=== PATIENT | male | born 1945 | race Caucasian/White ===

== ENCOUNTER 2018-10-13 05:40 | Observation (INO) ==
--- NOTE | 2018-09-24 10:15 | PAT Medication Instructions ---
Medication Instructions Date of Service September 24, 2018 Home Medications arginine HCl (L-arginine) 1,000 mg tablet 1 tab PO BID aspirin 81 mg tablet,delayed release 81 mg PO QAM atorvastatin 10 mg tablet 10 mg PO QAM cyanocobalamin (vit B-12) 500 mcg tablet 500 mcg PO QAM levomefolate Ca 3 mg-B6 35 mg-meB12 2 mg-algal oil 90.314 mg capsule 1 cap PO BID tadalafil 5 mg tablet 5 mg PO HS zaleplon 10 mg capsule 10 mg PO HS PRN cholecalciferol (vitamin D3) 1,000 units PO QPM melatonin 10 mg PO HS PRN ASK your prescriber and surgeon aspirin 81 mg tablet,delayed release 81 mg PO QAM STOP taking 2 weeks before surgery (or as soon as possible if surgery is within 2 weeks) arginine HCl (L-arginine) 1,000 mg tablet 1 tab PO BID levomefolate Ca 3 mg-B6 35 mg-meB12 2 mg-algal oil 90.314 mg capsule 1 cap PO BID DO NOT take the morning of surgery cyanocobalamin (vit B-12) 500 mcg tablet 500 mcg PO QAM Take morning of surgery With a small sip of water, OTHERWISE NOTHING TO EAT OR DRINK AFTER MIDNIGHT: atorvastatin 10 mg tablet 10 mg PO QAM Take evening before surgery tadalafil 5 mg tablet 5 mg PO HS zaleplon 10 mg capsule 10 mg PO HS PRN (if needed) cholecalciferol (vitamin D3) 1,000 units PO QPM melatonin 10 mg PO HS PRN (if needed) Other Notes If you have any questions please call us at [phone] or [phone] or [phone] or [phone]
--- NOTE | 2018-09-25 09:33 | Anesthesiology Consultation ---
Date of Service September 25, 2018 Assessment & Plan (1) Encounter for pre-operative examination: Patient prefers to be called "Justo" Chart Review Chart Review: Acceptable Risk for Surgery and Patient seen in Pre Admission Testing Teaching & Discussion Pre-Anesthesia Teaching/Discussion Notes: Instructed NPO after midnight before surgery,except medications with 15 cc of water. Medication instructions provided according to the PAT guidelines. History Surgery Operation Date: 10/13/18 07:00 Proposed Procedures p Bilateral Open Inguinal Hernia Repair - Bry Mccurdy MD, FACS Height/Weight Height: 6 ft 4 in Weight: 93.3 kg Allergies Allergy/AdvReac Type Severity Reaction Status Date / Time No Known Allergies Allergy Verified 09/22/18 10:09 Medications Home Medications Medication Instructions Recorded Confirmed Last Taken arginine HCl (L-arginine) 1,000 mg 1 tab PO BID tab 09/08/18 09/22/18 Unknown tablet aspirin 81 mg tablet,delayed 81 mg PO QAM tab 09/08/18 09/22/18 Unknown release atorvastatin 10 mg tablet 10 mg PO QAM tab 09/08/18 09/22/18 Unknown cyanocobalamin (vit B-12) 500 mcg 500 mcg PO QAM tab 09/08/18 09/22/18 Unknown tablet levomefolate Ca 3 mg-B6 35 1 cap PO BID cap 09/08/18 09/22/18 Unknown mg-meB12 2 mg-algal oil 90.314 mg capsule tadalafil 5 mg tablet 5 mg PO HS tab 09/08/18 09/22/18 Unknown zaleplon 10 mg capsule 10 mg PO HS PRN cap 09/08/18 09/22/18 Unknown cholecalciferol (vitamin D3) 1,000 units PO QPM 09/22/18 09/22/18 Unknown melatonin 10 mg PO HS PRN 09/22/18 09/22/18 Unknown Past Medical History Medical History BPH (benign prostatic hyperplasia) Hyperlipidemia Neuropathy FEET (BOTTOM)/TOE NEUROPATHY Osteoarthritis PVC (premature ventricular contraction) NO ISSUES S/P ABLATION Exercise / Class Metabolic Activity II 4-5 Yardwork/Stairs/Walk up hill Past Family History Family History Father Hx of cardiac disorder Mother Heart disease Past Surgical History Surgical History History of cardiac radiofrequency ablation History of total left knee replacement History of transurethral resection of prostate History of urologic surgery UROLIFT Hx of appendectomy Hx of craniotomy ANEURYSM REPAIR D/T "INTACT ANUERYSM" (1998) Hx of melanoma excision BACK Past Anesthesia History No Hx of Anesthesia Complications and No Family Hx of Anesthesia Complications History of PONV No Hx of PONV and No Hx of Motion Sickness Social History Smoking Status: Former smoker Do You Dip or Chew Tobacco: No Smoking End Date: QUIT 1983 Hx Alcohol Use: Yes Alcohol type: wine alcohol intake frequency: a few times a week Hx Substance Use: No substance use type: marijuana Review of Systems Rare palpitations. Patient denies chest pain, shortness of breath, dyspnea on exertion, joint pain, reflux, cough, wheezing. Physical Exam Vital Signs VITALS BP 128/85 P 75 TEMP 97.8 SP02 94%RA RESP 16 PHYSICAL Full neck and c-spine range of motion. Full TMJ range of motion. TMD 3 finger breaths Mallampati Score 1 Dentition: intact Lungs: clear throughout to auscultation Cardiac: regular rate and rhythm, no murmurs noted Spine: normal Carotid arteries: negative bruit Extremities: no edema Testing Laboratory Results 08/14/18 WBC 5.16 H/H 15.5/43.0 PLATELETS 181 SODIUM 140 POTASSIUM 3.9 CHLORIDE 108 CO2 28 BUN 18 CREATININE 1.05 GLUCOSE 83 Electrocardiogram Date: 09/25/18 Findings: + NSR @ (77)
[2018-10-13] MEDS ORDERED: CEFAZOLIN 2000MG 2,000 MG/15 ML SYR IV SCH (06:00)
[2018-10-13] MEDS ORDERED: LR 15ML/HR IV SCH (06:00)
[2018-10-13] MEDS ORDERED: HYDROmorphone INJ 1 MG/ML SYRINGE IV PRN (06:39)
[2018-10-13] MEDS ORDERED: ONDANSETRON INJ 2 MG/ML 2 ML VIAL IV PRN ×2 (06:39→10:19)
[2018-10-13] MEDS ORDERED: ATROPINE SULFATE 0.1 MG/ML 10ML SYR IV PRN (06:39)
[2018-10-13] MEDS ORDERED: NALOXONE HCL 0.4 MG/1 ML VIAL/CARP IV PRN (06:39)
[2018-10-13] MEDS ORDERED: FLUMAZENIL 0.1 MG/1 ML 10 ML VIAL IV PRN (06:39)
[2018-10-13] MEDS ORDERED: LABETALOL HCL IV 5 MG/ML 20ML IV PRN (06:39)
[2018-10-13] MEDS ORDERED: PROMETHAZINE HCL 12.5 MG in SODIUM CHLORIDE 0.9% 50 ML IV PRN ×2 (06:39→10:19)
[2018-10-13] MEDS ORDERED: ePHEDrine sulfate 50 MG/ML AMP IV PRN (06:39)
[2018-10-13] MEDS ORDERED: PROPOFOL IV EMULSION 10 MG/ML 20 ML VIAL IV ONE (06:44)
[2018-10-13] MEDS ORDERED: DEXAMETHASONE SOD INJ 4 MG/ML VIAL ONE (06:44)
[2018-10-13] MEDS ORDERED: ONDANSETRON INJ 2 MG/ML 2 ML VIAL ONE (06:44)
[2018-10-13] MEDS ORDERED: LIDOCAINE HCL 2% 2 ML VIAL/AMP(20MG/ML) INFIL ONE (06:44)
[2018-10-13] MEDS ORDERED: fentaNYL citrate 100 MCG/2 ML VIAL ONE ×2 (06:44→07:30)
[2018-10-13] MEDS ORDERED: LARYING-O-JET KIT (LTA) ONE (06:44)
[2018-10-13] MEDS ORDERED: BUPIVACAINE 0.5 % 5 MG/1 ML MPF 30ML VIAL ONE ×2 (06:46→08:00)
[2018-10-13] MEDS ORDERED: LIDOCAINE HCL 1% 20 ML VIAL ONE (06:46)
[2018-10-13] MEDS ORDERED: CEFAZOLIN 250 MG/ML 1 GM VIAL ONE (06:46)
--- NOTE | 2018-10-13 06:47 | History & Physical Bridge Note ---
Date of Service October 13, 2018 History & Physical Bridge Note I have examined the patient, reviewed the History & Physical and in the interval since the performance of the History & Physical I have noted the following changes of clinical significance: no changes noted
[2018-10-13] MEDS ORDERED: GLYCOPYRROLATE 0.2 MG/ML VIAL ONE (07:28)
[2018-10-13] MEDS ORDERED: ROCURONIUM BROMIDE 10 MG/ML 5 ML VIAL ONE (07:28)
[2018-10-13] MEDS ORDERED: NEOSTIGMINE METHYLSULFATE 5 MG/5 ML SYR ONE (07:28)
[2018-10-13] MEDS ORDERED: ePHEDrine sulfate 50 MG/ML AMP ONE (07:51)
--- NOTE | 2018-10-13 08:54 | Operative Report ---
Post Operative Report Pre & Post Diagnosis Operation Date: 10/13/18 07:00 Pre-Op Diagnosis: Bilateral Inguinal Hernia Post-Op Diagnosis: Bilateral Inguinal Hernia Lt- Direct/ indirect, lipoma, Rt - Ind, lipoma Procedure Operation Date: 10/13/18 07:00 Actual Procedures p Bilateral Open Inguinal Hernia Repair with mesh(Bilateral) - Bry Mccurdy MD, FACS Surgeon Bry Mccurdy MD, FACS Silica Spray Mixer Joselito Felder Estimated Blood Loss 20 Findings Consistent with Post-Op Diagnosis Specimens lipoma Description of Procedure see dictation I attest to the content of the Intraoperative Record and any orders documented therein. Any exceptions are noted below.
[2018-10-13] MEDS ORDERED: ACETAMINOPHEN 1000 MG/100 ML IV IV ONE (09:10)
--- NOTE | 2018-10-13 09:46 | Anesthesiology Progress Note ---
Date of Service October 13, 2018 Anesthesia Post Procedure Vital Signs Vital Signs: Temp Pulse Pulse Resp BP BP Pulse Ox 10/13/18 09:35 58 L 12 130/86 97 10/13/18 09:25 61 23 126/84 96 10/13/18 09:15 65 21 131/71 94 10/13/18 09:08 36.2 C L 73 12 128/82 94 10/13/18 06:00 36.6 C 72 16 155/99 H 98 Pain Intensity Right Groin: Pain Intensity: 1 Bilateral Groin: Pain Intensity: 0 Transfer of Care Handoff Completed per policy Notes Mental Status: alert / awake / arousable Patient Amnestic to Procedure: Yes Nausea / Vomiting: adequately controlled Pain: adequately controlled Airway Patency, RR, SpO2: stable & adequate BP & HR: stable & adequate Hydration State: stable & adequate Anesthetic Complications: no major complications apparent
[2018-10-13] MEDS ORDERED: ACETAMINOPHEN 325 MG TAB PO PRN (10:19)
[2018-10-13] MEDS ORDERED: HYDROCODONE/ACETAMOPHEN 5/325MG TAB PO PRN ×2 (10:19)
[2018-10-13] MEDS ORDERED: MoRPHine SULFATE 2 MG/ML CARP IV PRN ×2 (10:19)
[2018-10-13] MEDS ORDERED: ACETAMINOPHEN 1,000 MG/100 ML VIAL IV ONE ×2 (10:19→11:00)
[2018-10-13] MEDS ORDERED: SODIUM CHLORIDE 0.9% 1000ML 1,000 ML IV SCH (10:19)
[2018-10-13] MEDS: ATORVASTATIN 10 MG TAB PO SCH (11:52)
[2018-10-13] MEDS: MAGNESIUM HYDROXIDE SUSP 30 ML UDC PO SCH ×2 (12:55→17:50)
--- NOTE | 2018-10-13 13:10 | Hospitalist Consultation ---
Date of Consultation October 13, 2018 Assessment & Plan (1) Inguinal hernia: s/p repair by Dr. Mccurdy today. Surgery well tolerated with no complications identified -Pain control, bowel regimen and anti-emetics per primary team -Activity instruction per primary team Present on Admission?: Yes (2) Dyslipidemia: Chronic -Continue Atorvastatin 10mg po daily Present on Admission?: Yes (3) BPH (benign prostatic hyperplasia): Chronic. Symptoms well controlled. Patient has urinated post-operatively without difficulty -Continue Tadalafil Patient may resume vitamins/minerals and supplements on discharge History of Present Illness Reason for Consultation: medical management Attending Physician: Bry Mccurdy MD, FACS History of Present Illness Moreno Briceño is a 73yo C male with history of HLP, BPH, PVCs s/p ablation. Patient s/p repair of bilateral inguinal hernias today by Dr. Mccurdy. Surgery was well tolerated, minimal blood loss, no complications identified. Patient presently in minima pain. He has been ambulating without difficulty. No BM or flatus yet. No additional complaints Allergies Allergy/AdvReac Type Severity Reaction Status Date / Time No Known Allergies Allergy Verified 10/13/18 05:53 Home Medications Home Medications Medication Instructions Recorded Confirmed Type arginine HCl (L-arginine) 1,000 mg 1 tab PO BID tab 09/08/18 10/13/18 History tablet aspirin 81 mg tablet,delayed 81 mg PO QAM tab 09/08/18 10/13/18 History release atorvastatin 10 mg tablet 10 mg PO QAM tab 09/08/18 10/13/18 History cyanocobalamin (vit B-12) 500 mcg 500 mcg PO QAM tab 09/08/18 10/13/18 History tablet levomefolate Ca 3 mg-B6 35 1 cap PO BID cap 09/08/18 10/13/18 History mg-meB12 2 mg-algal oil 90.314 mg capsule tadalafil 5 mg tablet 5 mg PO HS tab 09/08/18 10/13/18 History zaleplon 10 mg capsule 10 mg PO HS PRN cap 09/08/18 10/13/18 History cholecalciferol (vitamin D3) 1,000 units PO QPM 09/22/18 10/13/18 History melatonin 10 mg PO HS PRN 09/22/18 10/13/18 History Patient History Medical History BPH (benign prostatic hyperplasia) Hyperlipidemia Neuropathy FEET (BOTTOM)/TOE NEUROPATHY Osteoarthritis PVC (premature ventricular contraction) NO ISSUES S/P ABLATION Surgical History History of cardiac radiofrequency ablation History of total left knee replacement History of transurethral resection of prostate History of urologic surgery UROLIFT Hx of appendectomy Hx of craniotomy ANEURYSM REPAIR D/T "INTACT ANUERYSM" (1998) Hx of melanoma excision BACK Family History Father Hx of cardiac disorder Mother Heart disease Social History Preferred Language: Estonian Communication Ability: Effective Beliefs That Will Affect Care: None marital status: Current Living Situation: Spouse current occupational status: unemployed Feels Safe at Home: Yes Safety Concerns: Feels Safe At This Time Smoking Status: Former smoker Do You Dip or Chew Tobacco: No Smoking End Date: QUIT 1983 Second Hand Exposure: No Hx Alcohol Use: Yes Alcohol type: wine Alcohol Intake Frequency: Weekly Hx Substance Use: Yes substance use type: marijuana Dental Care, Regularly: Yes Physical Activity Frequency: 3-4 Times per Week Review of Systems Review of Systems: All systems reviewed & are unremarkable except as noted in HPI & below Physical Exam Physical Exam: General: patient resting comfortably, NAD, non-toxic in appearance, AA&O x 4 Skin: warm, dry, no rashes or lesions, surgical incisions c/d/i HEENT: NC/AT, PERRL, EOMI, anicteric sclera, conjunctiva without injection, external ear normal to inspection and nontender, nares patent, moist mucus membranes, dentition intact, no oropharyngeal lesions, neck supple, trachea midline, no LAD, no thyromegaly, no JVD Heart: +S1/S2, regular, no m/r/g Lungs: equal air entry bilaterally, no rales/rhonchi/wheezes Abd: +BS, soft, NT/ND, no masses/organomegaly/ascites Ext: warm, 2+ pulses in UE/LE bilaterally, no clubbing/cyanosis or edema Neuro: nonfocal, patient AA&O x 4, speech intact, no facial droop, moving all extremities on command with equal strength 5/5 Results & Data Vital Signs (Past 12 Hours) Vital Signs Temp Pulse Pulse Pulse Resp BP BP 10/13/18 12:03 36.5 C 68 20 139/82 10/13/18 11:11 36.5 C 67 20 147/95 H 10/13/18 10:42 36.4 C L 62 20 143/92 H 10/13/18 10:05 36.5 C 66 16 139/90 10/13/18 09:45 36.3 C L 59 L 12 131/89 10/13/18 09:35 58 L 12 130/86 10/13/18 09:25 61 23 126/84 10/13/18 09:15 65 21 131/71 10/13/18 09:08 36.2 C L 73 12 128/82 10/13/18 06:00 36.6 C 72 16 155/99 H Pulse Ox 10/13/18 12:03 98 10/13/18 11:11 95 10/13/18 10:42 91 10/13/18 10:05 95 10/13/18 09:45 97 10/13/18 09:35 97 10/13/18 09:25 96 10/13/18 09:15 94 10/13/18 09:08 94 10/13/18 06:00 98 PG Care Time/CCT Total # of Minutes Spent Total Time Spent with Patient: Total time spent is greater than 50% in coordination of care (as documented) at patient's floor/unit and/or counseling patient: (1) BPH (benign prostatic hyperplasia) Lower urinary tract symptom presence: symptoms absent Qualified Code(s): N40.0 - Benign prostatic hyperplasia without lower urinary tract symptoms (2) Inguinal hernia Obstruction and gangrene presence: without obstruction or gangrene Laterality: bilateral Recurrence: not specified as recurrent Qualified Code(s): K40.20 - Bilateral inguinal hernia, without obstruction or gangrene, not specified as recurrent
[2018-10-13] MEDS: CEFAZOLIN 2000MG 2,000 MG/15 ML SYR IV SCH ×2 (14:30→21:51)
--- NOTE | 2018-10-13 15:16 | Operative Report ---
DATE OF OPERATION: 10/13/2018 NAME OF OPERATION: Bilateral inguinal hernia repair with mesh. PREOPERATIVE DIAGNOSIS: Bilateral inguinal hernia. POSTOPERATIVE DIAGNOSES: Bilateral inguinal hernia with left side direct and indirect with lipoma, right side indirect with large lipoma. STAFF SURGEON: Bry Mccurdy MD TEAM ASSEMBLER: Loy Felder PA-C ANESTHESIA: General. DESCRIPTION OF PROCEDURE: The patient was brought in the operating room and placed on the operating table in supine position. His lower abdomen was prepped and draped in usual fashion. The left side was approached first. 0.5% plain Marcaine was used to anesthetize the skin and subcutaneous tissue on both sides. Incision made in the left side parallel to the inguinal ligament, carrying dissection down identifying the external oblique fibers incising them along their length to the external ring, mobilizing the cord structures. The patient did have a relatively large hernia, it appeared to be both direct and indirect. It was dissected away from the cord structures with a lipoma associated with the hernia. This was reduced and then a large mesh plug placed into the defect, secured to surrounding tissue using 2-0 Ethibond suture. A large mesh patch was then placed into the floor of the canal around the cord structures, secured to surrounding tissue using 2-0 Ethibond suture. The external oblique fibers were then closed over the mesh around the cord structures using 2-0 Ethibond suture. The site was irrigated with antibiotic solution. We were able to identify on both sides, ilioinguinal and iliohypogastric nerves. The left side was then closed using 2-0 plain for the subcutaneous tissue and then 4-0 nylon for the skin with Steri-Strips. The right side was approached. Same incision performed. The dissection was carried down in the same fashion. Cord structures mobilized. At this time, the patient had a large indirect inguinal hernia with lipoma which was dissected away. The lipoma was excised. The remaining tissue was reduced. He had a significant amount of scarred cremasteric fibers, some of which had to be transected. At this point, a mesh plug was placed into the defect, secured to surrounding tissue using 2-0 Ethibond suture. Large mesh patch placed into the floor of the canal around the cord structures and then secured using 2-0 Ethibond suture. The site irrigated with antibiotic solution. Both sites were anesthetized deeply with 0.5% plain Marcaine also. On the right side, the subcutaneous tissue reapproximated using 2-0 plain suture and the skin reapproximated using 4-0 nylon with Steri-Strips. Dressings applied and the patient transferred to recovery room in stable condition. My assistant director of admissions helped with prepping, draping, repair of the hernias and closure of the wounds. I attest to the content of the Intraoperative Record and any orders documented therein. Any exception s are noted below.
[2018-10-13] MEDS: IBUPROFEN 600 MG TAB PO PRN (16:05)
[2018-10-13] MEDS: DOCUSATE SODIUM/SENNA 50/8.6MG TAB PO SCH (17:50)
[2018-10-13] MEDS ORDERED: TADALAFIL PO SCH (21:00)
[2018-10-13] MEDS ORDERED: NON-FORMULARY MEDICATION (Tadalafil 5 MG) PO SCH (21:00)
[2018-10-13] MEDS: CALCIUM CARBONATE 500 MG CHEWABLE TAB PO PRN (23:13)
[2018-10-14] MEDS ORDERED: ZOLPIDEM TARTRATE 5 MG TAB PO PRN (00:07)
[2018-10-14] MEDS ORDERED: ZOLPIDEM TARTRATE 5 MG TAB ONE (00:19)
[2018-10-14] MEDS: IBUPROFEN 600 MG TAB PO PRN ×2 (00:56→09:09)
[2018-10-14] MEDS: CALCIUM CARBONATE 500 MG CHEWABLE TAB PO PRN (05:03)
[2018-10-14] MEDS ORDERED: ALUMINUM/MAGNESIUM SUSP 30 ML UDC PO PRN (05:38)
[2018-10-14] MEDS: CEFAZOLIN 2000MG 2,000 MG/15 ML SYR IV SCH (05:56)
--- NOTE | 2018-10-14 06:47 | Discharge Summary ---
PRINCIPAL DIAGNOSIS: Bilateral inguinal hernias. PROCEDURES: The patient underwent open bilateral inguinal hernia repair. HISTORY OF PRESENT ILLNESS AND HOSPITAL COURSE: The patient is a 73-year-old male with known bilateral inguinal hernias. He was brought into the hospital for elective repair on 10/13/2018. He did quite well with his operation and has done well overnight, is able to void and has felt stable for discharge home today to be seen in the surgical clinic next week.
--- NOTE | 2018-10-14 08:24 | Anesthesiology Progress Note ---
Date of Service October 14, 2018 Anesthesia Post Procedure Vital Signs Vital Signs: Temp Pulse Pulse Resp BP BP Pulse Ox 10/14/18 07:18 36.4 C L 89 16 131/82 111/69 93 10/14/18 07:07 36.4 C L 89 16 111/69 93 10/14/18 03:42 36.4 C L 97 H 16 131/82 92 10/13/18 23:10 36.3 C L 91 H 16 146/86 H 97 10/13/18 18:37 36.9 C 75 18 126/79 94 10/13/18 15:13 36.6 C 95 H 18 146/95 H 96 10/13/18 13:08 36.6 C 69 18 133/79 98 10/13/18 12:03 36.5 C 68 20 139/82 98 10/13/18 11:11 36.5 C 67 20 147/95 H 95 10/13/18 10:42 36.4 C L 62 20 143/92 H 91 10/13/18 10:05 36.5 C 66 16 139/90 95 10/13/18 09:45 36.3 C L 59 L 12 131/89 97 10/13/18 09:35 58 L 12 130/86 97 10/13/18 09:25 61 23 126/84 96 10/13/18 09:15 65 21 131/71 94 10/13/18 09:08 36.2 C L 73 12 128/82 94 Pain Intensity Right Groin: Pain Intensity: 1 Bilateral Groin: Pain Intensity: 2 Notes Mental Status: alert / awake / arousable Patient Amnestic to Procedure: Yes Nausea / Vomiting: adequately controlled Pain: adequately controlled Airway Patency, RR, SpO2: stable & adequate BP & HR: stable & adequate Hydration State: stable & adequate Anesthetic Complications: no major complications apparent
[2018-10-14] MEDS: DOCUSATE SODIUM/SENNA 50/8.6MG TAB PO SCH (09:07)
[2018-10-14] MEDS: ATORVASTATIN 10 MG TAB PO SCH (09:07)
[2018-10-14] MEDS: MAGNESIUM HYDROXIDE SUSP 30 ML UDC PO SCH (09:09)
== END 2018-10-14 10:00 | disposition home or self-care (01) ==
LOC: ASU 05:40 → 3N 05:40

== ENCOUNTER 2019-12-21 20:50 | Observation (INO) ==
[2019-12-21] MEDS ORDERED: SODIUM CHLORIDE 0.9% 1000ML 1,000 ML IV SCH (21:45)
[2019-12-21 22:15] LABS: Basophils # (auto) 0.01 K/uL (0-0.2); Basophils % (auto) 0.2 %; Eosinophils # (auto) 0.02 K/uL (0-0.5); Eosinophils % (auto) 0.4 %; Hematocrit (blood only) 40.3 % (42-52); Hemoglobin 13.9 g/dL (14.0-18.0); Immature Granulocytes # (auto) 0.02 K/uL (0.00-0.02); Immature Granulocytes % (auto) 0.4 %; Lymphocytes # (auto) 0.35 K/uL (1.2-3.4); Lymphocytes % (auto) 6.8 %; Mean Corpuscular Hemoglobin 30.3 pg (25-34); Mean Corpuscular Hgb Conc 34.5 g/dL (32-36); Monocytes % (auto) 7.8 %; Neutrophils # (auto) 4.34 K/uL (1.4-6.5); Neutrophils % (auto) 84.4 %; Platelet Count 145 K/uL (130-400); RDW Coefficient of Variation 13.7 % (11.5-14.5); RDW Standard Deviation 44.2 fL (36.4-46.3); Red Blood Count 4.58 M/uL (4.7-6.1); White Blood Count 5.14 K/uL (4.8-10.8)
[2019-12-21 22:25] LABS: Appearance Urine Clear (Clear); Bilirubin Urine Negative (Negative); Blood Urine Negative (Negative); Color Urine Yellow; Glucose Urine UA Negative (Negative); Ketones Urine Negative (Negative); Leukocyte Esterase Urine Negative (Negative); Nitrite Urine Negative (Negative); Protein Urine Negative (Negative); Specific Gravity Urine 1.016 (1.000-1.030); Urobilinogen Urine Negative (Negative); pH Urine 5.5 (4.5-7.5)
--- NOTE | 2019-12-21 22:29 | Emergency Department Note ---
History of Present Illness General Chief complaint: Syncope (Near Syncope) Stated complaint: near syncope, hot flashes History of Present Illness Maximum Pain Intensity: 0 This is a 74-year-old male presenting to the emergency department for evaluation of hot flashes and near syncope for the past 24 hours. The patient states that he was in [facility] earlier today. He had 3 episodes overnight, and went to the ER in [facility] this morning. Evidently he had blood work and CT scan of the head that did not show a reason for his symptoms. The patient was discharged with diagnosis of chest pain and dehydration. His drove him back home to [place], and he did have an additional 3 episodes in the car. Each episode was very brief, lasting only a few moments, but he feels a flushing of his chest into his head and then becomes dizzy. His symptoms stop very quickly after they began. The patient does not report any recent medication changes. He was given IV fluids while in the ER this morning. The patient is not having distinct chest pain or chest pressure. No radiation of pain into his arms or abdomen. No nausea or vomiting. He does not have any rec ent illness or known ill exposures. No fevers or chills. He does have a past history of cardiac ablation for PVCs as well as aneurysm clip. He rates his current discomfort a 0/10, but did contact his PCPs office after the third episode this afternoon, and they referred him to the ER for further care. Home Medications Home Medications Medication Instructions Recorded Confirmed Type arginine HCl (L-arginine) 1,000 mg 1 tab PO BID tab 09/08/18 12/21/19 History tablet aspirin 81 mg tablet,delayed 81 mg PO QAM tab 09/08/18 12/21/19 History release cyanocobalamin (vitamin B-12) 500 500 mcg PO QAM tab 09/08/18 12/21/19 History mcg tablet cholecalciferol (vitamin D3) 1,000 units PO BID 09/22/18 12/21/19 History melatonin 10 mg PO HS PRN 09/22/18 12/21/19 History levomefolate Ca 3 mg-B6 35 1 cap PO BID #180 cap 02/25/19 12/21/19 Rx mg-meB12 2 mg-algal oil 90.314 mg capsule tadalafil 5 mg tablet 5.5 mg PO DAILY #30 tab 08/07/19 12/21/19 Rx CDB oil 1 dose SUBLINGUAL UD PRN 10/12/19 12/21/19 History ibuprofen 400 mg tablet 400 mg PO Q8H PRN 10/12/19 12/21/19 History saw palmetto 500 mg capsule 500 mg PO TID 10/30/19 12/21/19 History atorvastatin 10 mg tablet 10 mg PO QAM #90 tab 11/17/19 12/21/19 Rx zaleplon 5 mg capsule 5 mg PO DAILY PRN #30 cap 11/23/19 12/21/19 Rx Allergies Allergy/AdvReac Type Severity Reaction Status Date / Time No Known Allergies Allergy Verified 12/21/19 22:30 Past Med/Surg History Medical History Acute exacerbation of chronic low back pain BPH (benign prostatic hyperplasia) BPH (benign prostatic hyperplasia) Dyslipidemia Encounter for pre-operative examination Hyperlipidemia Inguinal hernia Leg length discrepancy Lumbar facet joint syndrome Neuropathy FEET (BOTTOM)/TOE NEUROPATHY Osteoarthritis Osteoarthritis PVC (premature ventricular contraction) NO ISSUES S/P ABLATION Shoulder pain, right Surgical History History of cardiac radiofrequency ablation History of right knee joint replacement History of surgery Aneurysmectomy History of total left knee replacement History of transurethral resection of prostate History of urologic surgery UROLIFT Hx of appendectomy Hx of craniotomy ANEURYSM REPAIR D/T "INTACT ANUERYSM" (1998) Hx of melanoma excision BACK S/P hernia repair (10/13/18) Bilateral inguinal hernia with left side direct and indirect with lipoma, right side indirect with large lipoma 10/13/18 Dr. Mccurdy. Family History Father Hx of cardiac disorder Mother Heart disease Breast cancer Hypertension Kidney malignant neoplasm Unknown Breast cancer Family/Other Prostate cancer Family/Other Myocardial infarction Denies family history of Ovarian cancer Colorectal cancer Social History Smoking Status: Former smoker Second Hand Exposure: No; Hx Alcohol Use: No Hx Substance Use: No Preferred Language: Barbadian Communication Ability: Effective Visual Impairment: No Limitations Hearing Ability: Normal [employer] Inspector Required: No Beliefs That Will Affect Care: None marital status: Current Living Situation: Spouse current occupational status: retired Feels Safe at Home: Yes Childhood Exposure to Second-Hand Smoke: Yes Dental Care, Regularly: Yes Physical Activity Frequency: 3-4 Times per Week Seatbelt Use: always Sunscreen Use: Yes Assistive Devices: None Review of Systems A total of 10 systems reviewed and were otherwise negative Physical Exam Vital Signs Vital Signs - 24 hr 12/21/19 23:30 12/21/19 23:34 12/22/19 00:00 Temperature Temperature Source Pulse Rate - Lying 82 Pulse Rate - Sitting 88 Pulse Rate - Standing 87 Pulse Rate 77 79 Pulse Rate [Finger] Respiratory Rate 21 19 Respiratory Effort / Characteristics Respiratory Depth Respiratory Pattern Blood Pressure - Lying 159/100 H Blood Pressure - Sitting 157/107 H Blood Pressure- Standing 165/100 H Blood Pressure 165/100 H 158/96 H Blood Pressure [Left Arm] Blood Pressure Mean 111 108 Blood Pressure Mean [Left Arm] Blood Pressure Position [Left Arm] Pulse Oximetry 98 98 Oxygen Delivery Method 12/22/19 00:10 12/22/19 00:30 Temperature 36.7 C Temperature Source Oral Pulse Rate - Lying Pulse Rate - Sitting Pulse Rate - Standing Pulse Rate 77 Pulse Rate [Finger] 82 Respiratory Rate 14 18 Respiratory Effort / Characteristics Non-Labored Spontaneous Respiratory Depth Normal Respiratory Pattern Regular Blood Pressure - Lying Blood Pressure - Sitting Blood Pressure- Standing Blood Pressure 148/103 H Blood Pressure [Left Arm] 155/88 H Blood Pressure Mean 115 Blood Pressure Mean [Left Arm] 110 Blood Pressure Position [Left Arm] Sitting Pulse Oximetry 96 96 Oxygen Delivery Method Room Air VITALS: Vitals are noted on the nurse's note and reviewed by myself. Vital signs stable. GENERAL: Well-developed, well-nourished, white male, who is in no acute distress and resting comfortably. Patient is cooperative with the examination. HEAD: Normocephalic atraumatic. NECK: Supple without nuchal rigidity. No lymphadenopathy. No thyromegaly. Cervical spine is nontender. HEART: Regular rate and rhythm without murmurs gallops or rubs. LUNGS: Clear to auscultation bilaterally without wheezes, rales or rhonchi. No retractions or accessory muscle use. ABDOMEN: Positive normal bowel sounds x 4. Soft, nontender, without masses or organomegaly. No guarding or rebound tenderness. MUSCULOSKELETAL: No muscle atrophy, erythema, or edema noted. Full range of motion in all extremities. No calf tenderness or edema. NEURO: Patient was alert and oriented to person place and time. CN II through XII grossly intact. Course Administered Medications Discontinued Medications Aspirin (Aspirin 81 Mg Ectab) [facility] Stop: 01/21/20 08:59 Last Admin: 12/22/19 07:34 Dose: 81 mg Documented by: [id number] Atorvastatin Calcium (Atorvastatin 10 Mg Tab) 10 mg PO [facility] Stop: 01/21/20 08:59 Last Admin: 12/22/19 07:34 Dose: 10 mg Documented by: [id number] Cyanocobalamin (Cyanocobalamin 500 Mcg Tablet (Vitamin B-12)) 500 mcg PO [facility] Stop: 01/21/20 08:59 Last Admin: 12/22/19 07:35 Dose: 500 mcg Documented by: [id number] Enoxaparin Sodium (Enoxaparin Inj 40 Mg/0.4 Ml Syr) 40 mg SQ [facility] Stop: 01/21/20 08:59 Last Admin: 12/22/19 07:34 Dose: 40 mg Documented by: [id number] Sodium Chloride (Nss 1000ml) 1,000 mls @ 999 mls/hr IV .Q1H1M [facility] Stop: 12/21/19 22:45 Last Infusion: 12/21/19 23:25 Dose: 0 mls/hr Documented by: [id number] Admin: 12/21/19 22:12 Dose: 999 mls/hr Documented by: [id number] Miscellaneous (Tadalafil~Order Awaiting Action) 1 ea N/A QS [facility] Stop: 01/21/20 01:59 Last Admin: 12/22/19 15:39 Dose: Not Given Documented by: [id number] Admin: 12/22/19 07:25 Dose: Not Given Documented by: [id number] Admin: 12/22/19 02:15 Dose: Not Given Documented by: [id number] Potassium Chloride (Potassium Chloride 20 Meq Tabcr) 20 meq [facility] [place] Stop: 01/21/20 08:59 Last Admin: 12/22/19 07:33 Dose: 20 meq Documented by: [id number] Vitamin D (Cholecalciferol 1,000 Units 25 Mcg Tab) 1,000 units PO BID [facility] Stop: 01/21/20 08:59 Last Admin: 12/22/19 07:34 Dose: 1,000 units Documented by: [id number] Medical Decision Making Differential Diagnosis Differential diagnosis includes, but is not limited to: Myocardial infarction, dysrhythmia, pericarditis, pneumothorax, aortic aneurysm/dissection, DVT/PE, anxiety, GERD, PUD, electrolyte imbalance, thyroid disorder, pneumonia, bronchitis, pancreatitis, and others Laboratory Data Result diagrams: 12/22/19 04:33 12/22/19 04:33 Lab Results 12/21/19 12/21/19 12/21/19 Range/Units 22:03 22:03 22:03 WBC 5.14 (4.8-10.8) K/uL RBC 4.58 L (4.7-6.1) M/uL Hgb 13.9 L (14.0-18.0) g/dL Hct 40.3 L (42-52) % MCV 88.0 (80-100) fL MCH 30.3 (25-34) pg MCHC 34.5 (32-36) g/dL RDW Std Deviation 44.2 (36.4-46.3) fL RDW Coeff of Red 13.7 (11.5-14.5) % Plt Count 145 (130-400) K/uL MPV 9.0 (7.4-10.4) fL Immature Gran % (Auto) 0.4 % Neut % (Auto) 84.4 % Lymph % (Auto) 6.8 % Glynn % (Auto) 7.8 % Eos % (Auto) 0.4 % Baso % (Auto) 0.2 % Neut # (Auto) 4.34 (1.4-6.5) K/uL Lymph # (Auto) 0.35 L (1.2-3.4) K/uL Glynn # (Auto) 0.40 (0.11-0.59) K/uL Eos # (Auto) 0.02 (0-0.5) K/uL Baso # (Auto) 0.01 (0-0.2) K/uL Immature Gran # (Auto) 0.02 (0.00-0.02) K/uL PT 11.9 (9.0-12.0) Seconds INR 1.1 (0.9-1.1) APTT 26.3 (21.0-31.0) Seconds PTT Ratio 0.9 Sodium 142 (136-145) mmol/L Potassium 3.4 L (3.5-5.1) mmol/L Chloride 109 H (98-107) mmol/L Carbon Dioxide 24 (21-32) mmol/L Anion Gap 9.0 (3-11) BUN 12 (7-18) mg/dl Creatinine 1.01 (0.6-1.4) mg/dl Est Cr Clr Drug Dosing 76.7 ml/min Est GFR ( Amer) 84.5 Est GFR (Non-Af Amer) 72.9 BUN/Creatinine Ratio 11.9 (10-20) Glucose 119 H (70-99) mg/dl Calcium 8.6 (8.5-10.1) mg/dl Magnesium 2.0 (1.8-2.4) mg/dl Total Bilirubin 0.9 (0.2-1) mg/dl AST 26 (15-37) U/L ALT 34 (12-78) U/L Alkaline Phosphatase 50 (45-117) U/L Troponin I 0.046 H* (0-0.045) ng/ml Total Protein 7.1 (6.4-8.2) gm/dl Albumin 3.7 (3.4-5.0) gm/dl Globulin 3.4 (2.5-4.0) gm/dl Albumin/Globulin Ratio 1.1 (0.9-2) Lipase 125 (73-393) U/L TSH 0.906 (0.300-4.500) uIu/ml Urine Color Urine Appearance (Clear) Urine pH (4.5-7.5) Ur Specific [place] (1.000-1.030) Urine Protein (Negative) Urine Glucose (UA) (Negative) Urine Ketones (Negative) Urine Blood (Negative) Urine Nitrite (Negative) Urine Bilirubin (Negative) Urine Urobilinogen (Negative) Ur Leukocyte Esterase (Negative) Lyme Disease IgG Ab (Negative) Lyme Disease IgM Ab (Negative) 12/21/19 12/21/19 Range/Units 22:03 22:10 WBC (4.8-10.8) K/uL RBC (4.7-6.1) M/uL Hgb (14.0-18.0) g/dL Hct (42-52) % MCV (80-100) fL MCH (25-34) pg MCHC (32-36) g/dL RDW Std Deviation (36.4-46.3) fL RDW Coeff of Red (11.5-14.5) % Plt Count (130-400) K/uL MPV (7.4-10.4) fL Immature Gran % (Auto) % Neut % (Auto) % Lymph % (Auto) % Glynn % (Auto) % Eos % (Auto) % Baso % (Auto) % Neut # (Auto) (1.4-6.5) K/uL Lymph # (Auto) (1.2-3.4) K/uL Glynn # (Auto) (0.11-0.59) K/uL Eos # (Auto) (0-0.5) K/uL Baso # (Auto) (0-0.2) K/uL Immature Gran # (Auto) (0.00-0.02) K/uL PT (9.0-12.0) Seconds INR (0.9-1.1) APTT (21.0-31.0) Seconds PTT Ratio Sodium (136-145) mmol/L Potassium (3.5-5.1) mmol/L Chloride (98-107) mmol/L Carbon Dioxide (21-32) mmol/L Anion Gap (3-11) BUN (7-18) mg/dl Creatinine (0.6-1.4) mg/dl Est Cr Clr Drug Dosing ml/min Est GFR ( Amer) Est GFR (Non-Af Amer) BUN/Creatinine Ratio (10-20) Glucose (70-99) mg/dl Calcium (8.5-10.1) mg/dl Magnesium (1.8-2.4) mg/dl Total Bilirubin (0.2-1) mg/dl AST (15-37) U/L ALT (12-78) U/L Alkaline Phosphatase (45-117) U/L Troponin I (0-0.045) ng/ml Total Protein (6.4-8.2) gm/dl Albumin (3.4-5.0) gm/dl Globulin (2.5-4.0) gm/dl Albumin/Globulin Ratio (0.9-2) Lipase (73-393) U/L TSH (0.300-4.500) uIu/ml Urine Color Yellow Urine Appearance Clear (Clear) Urine pH 5.5 (4.5-7.5) Ur Specific [place] 1.016 (1.000-1.030) Urine Protein Negative (Negative) Urine Glucose (UA) Negative (Negative) Urine Ketones Negative (Negative) Urine Blood Negative (Negative) Urine Nitrite Negative (Negative) Urine Bilirubin Negative (Negative) Urine Urobilinogen Negative (Negative) Ur Leukocyte Esterase Negative (Negative) Lyme Disease IgG Ab Negative (Negative) Lyme Disease IgM Ab Negative (Negative) Imaging Data Radiologist's Impression: XR chest 2V PA/lateral HISTORY: Vague atypical chest pain. COMPARISON: None. FINDINGS: The lungs are clear. Cardiac silhouette is normal in size. No pleural effusions. No pneumothorax. IMPRESSION: No acute process. ECG Data Attestation: I personally reviewed and interpreted this ECG as follows: Indication: + syncope Additional Comments: Normal sinus rhythm @[address] elevation Normal ECG When compared with ECG of 25-SEP-2018 09:45, No significant change was found MDM Narrative Physical exam and history were performed. Nursing notes, EMR, and Medication List were personally reviewed. Patient appears to have vague syncope/near syncopal episodes over the past 24 hours. The patient was seen at an ER in [facility] earlier today where he had initial testing that was reportedly normal. On examination he appears well today. IV access was established and labs were obtained. The patient was hydrated with normal saline. An order was placed for continuous cardiac monitoring. The monitor shows a rate of 75 with normal sinus rhythm. Patient's blood work is as above and was reviewed. He does not have a significantly elevated white blood cell count or gross anemia. INR is 1.1. There is no significant electrolyte imbalance. Troponin is detectable and slightly elevated at 0.046. Lipase and transaminases are not diagnostic. TSH shows euthyroid state. Urine is without evidence of infection. Lyme screen is negative. Chest x-ray was performed and reviewed by myself and radiology showing no acute process. Overall the patient does not appear well for discharge home. He does have a history of cardiac disease and does have a minimally elevated troponin. He does not appear to have STEMI on EKG. The case was discussed with my attending, as well as with the on-call hospitalist service. Please see the hospitalist dictation for further patient course, plan, and disposition. The chart was completed utilizing [employer] Voice Recognition Software. Grammatical errors, random word insertions, pronoun errors, and incomplete sentences are an occasional consequence of this system due to software limitations, ambient noise, and hardware issues. Any formal questions or concerns about the content, text, or information contained within the body of this dictation should be directly addressed to the provider for clarification. . Impression & Plan Near syncope, Elevated troponin Discharge Plan Visit Data Chief Complaint: Syncope (Near Syncope) Stated Complaint: near syncope, hot flashes ED Provider: Gayatri Rader ED Midlevel Provider: Moreno Aden Discharge Problem: Near syncope, Elevated troponin Patient Disposition: Admitted As Inpatient Discharge Instructions Interventions: ED Discharge Assessment Last Done: 12/22/19 01:27
[2019-12-21 22:31] LABS: Albumin Level 3.7 gm/dl (3.4-5.0); BUN Creatinine Ratio 11.9 (10-20); Calcium 8.6 mg/dl (8.5-10.1); Creatinine Clr Calc Pharmacy 76.7 ml/min; Est GFR (African American) 84.5; Est GFR (Non-African American) 72.9; Potassium 3.4 mmol/L (3.5-5.1)
[2019-12-21 22:32] LABS: INR 1.1 (0.9-1.1); Partial Thromboplastin Ratio 0.9; Partial Thromboplastin Time 26.3 Seconds (21.0-31.0); Prothrombin Time 11.9 Seconds (9.0-12.0)
[2019-12-21 22:47] LABS: Albumin Globulin Ratio 1.1 (0.9-2); Bilirubin,Total 0.9 mg/dl (0.2-1); Globulin 3.4 gm/dl (2.5-4.0); Thyroid Stimulating Hormone 0.906 uIu/ml (0.300-4.500); Total Protein 7.1 gm/dl (6.4-8.2); Troponin I 0.046 ng/ml (0-0.045)
[2019-12-21 22:56] LABS: Lyme Ab IgG w/WB Rflx Negative (Negative); Lyme Ab IgM w/WB Rflx Negative (Negative)
--- NOTE | 2019-12-22 00:52 | History & Physical Report ---
Date of Service December 22, 2019 Assessment & Plan (1) Syncope: 74-year-old male with past medical history BPH, hyperlipidemia, OA presents with concerns of hot flashes and near syncope admitted for observation. Syncope Admit to med telemetry Etiology unclear. Patient does not really fit the description of neurally mediated (vasovagal, situational, carotid sinus), orthostatic hypotension, or cardiac (arrhythmia, structural diseaseEcho from November 2014 showing only mild concentric LVH with preserved EF 60%, no significant valvular disease) syncope. Much lower concern for something like pheochromocytoma EKG on admission showing normal sinus rhythm. When compared to ECG from September 25, 2018, no significant changes were found Lab work quite unremarkable, noting only potassium 3.4 Consideration for Holter monitor on discharge Elevated troponin Troponin 0 0.046 admission. We will continue to trend until peaked Low concern for ACS. Perhaps demand supply mismatch HLD Can atorvastatin 10 mg BPH Continue tadalafil 5 mg FEN/GI: HH diet DVT prophylaxis: Lovenox SQ DNR/DNI Dispo: Med telemetry History of Present Illness Chief Complaint: Syncope Primary Care Provider: Amina Hernandez MD 74-year-old male with past medical history BPH, hyperlipidemia, OA presents with concerns of hot flashes and near syncope. Onset about 24 hours ago. Patient notes that last time he had anything similar to this was about 25 to 30 years ago when he had PVCs for which he eventually underwent cardiac ablation. Yesterday morning around 2 AM patient woke up to urinate and during urination he felt this episode of flushing in his chest and head followed by near syncope sensation, and quickly subsided. Later in the morning when eating breakfast patient had additional episode. All these episodes lasted for a few seconds and quickly subside thereafter. Patient describes as feeling like his body is "shutting down." Earlier today patient was in [place] and visited a hospital there for these complaints. Per patient they ordered chest x-ray, head CT, blood work which all came back unremarkable. They given some IV fluids and discharged him. After that his and him drove back to [place]. While in the car patient had 3 additional episodes of the same. Again quickly resolving after a few seconds. Patient notes no exacerbating or alleviating factors as these episodes appear to be random in nature. Patient does not feel these episodes coming on prior to occurring. Patient denies any fevers, chills, sweats, nausea, vomiting, diarrhea, chest pain, palpitations, shortness of breath, abdominal pain, urinary symptoms, visual changes, impaired speech or swallowing, confusion, headache, known sick contacts, or recent medication changes. Patient with no other acute concerns or complaints. Patient does note that he feels a lot of anxiety over the past month or so regarding the political climate and disagreements within his own family. Patient contacted his PCPs office who then referred him to our ER for further evaluation and management. Pertinent labs: Potassium 3.4, troponin 0 0.046, otherwise largely unremarkable CBC and CMP EKG: Normal sinus rhythm. When compared to ECG from September 25, 2018, no significant changes were found Chest x-ray: No acute process per interpretation ER course: NSS 1 L Allergies Allergy/AdvReac Type Severity Reaction Status Date / Time No Known Allergies Allergy Verified 12/21/19 22:30 Home Medications Home Medications Medication Instructions Recorded Confirmed Type arginine HCl (L-arginine) 1,000 mg 1 tab PO BID tab 09/08/18 12/21/19 History tablet aspirin 81 mg tablet,delayed 81 mg PO QAM tab 09/08/18 12/21/19 History release cyanocobalamin (vitamin B-12) 500 500 mcg PO QAM tab 09/08/18 12/21/19 History mcg tablet cholecalciferol (vitamin D3) 1,000 units PO BID 09/22/18 12/21/19 History melatonin 10 mg PO HS PRN 09/22/18 12/21/19 History levomefolate Ca 3 mg-B6 35 1 cap PO BID #180 cap 02/25/19 12/21/19 Rx mg-meB12 2 mg-algal oil 90.314 mg capsule tadalafil 5 mg tablet 5.5 mg PO DAILY #30 tab 08/07/19 12/21/19 Rx CDB oil 1 dose SUBLINGUAL UD PRN 10/12/19 12/21/19 History ibuprofen 400 mg tablet 400 mg PO Q8H PRN 10/12/19 12/21/19 History saw palmetto 500 mg capsule 500 mg PO TID 10/30/19 12/21/19 History atorvastatin 10 mg tablet 10 mg PO QAM #90 tab 11/17/19 12/21/19 Rx zaleplon 5 mg capsule 5 mg PO DAILY PRN #30 cap 11/23/19 12/21/19 Rx Past Med/Surg History Medical History Acute exacerbation of chronic low back pain BPH (benign prostatic hyperplasia) BPH (benign prostatic hyperplasia) Dyslipidemia Encounter for pre-operative examination Hyperlipidemia Inguinal hernia Leg length discrepancy Lumbar facet joint syndrome Neuropathy FEET (BOTTOM)/TOE NEUROPATHY Osteoarthritis Osteoarthritis PVC (premature ventricular contraction) NO ISSUES S/P ABLATION Shoulder pain, right Surgical History History of cardiac radiofrequency ablation History of right knee joint replacement History of surgery Aneurysmectomy History of total left knee replacement History of transurethral resection of prostate History of urologic surgery UROLIFT Hx of appendectomy Hx of craniotomy ANEURYSM REPAIR D/T "INTACT ANUERYSM" (1998) Hx of melanoma excision BACK S/P hernia repair (10/13/18) Bilateral inguinal hernia with left side direct and indirect with lipoma, right side indirect with large lipoma 10/13/18 Dr. Mccurdy. Family History Father Hx of cardiac disorder Mother Heart disease Breast cancer Hypertension Kidney malignant neoplasm Unknown Breast cancer Family/Other Prostate cancer Family/Other Myocardial infarction Denies family history of Ovarian cancer Colorectal cancer Social History Smoking Status: Former smoker Second Hand Exposure: No; Do You Dip or Chew Tobacco: No; Hx Alcohol Use: No Hx Substance Use: No Preferred Language: Cypriot Communication Ability: Effective Visual Impairment: No Limitations Hearing Ability: Normal Erp Analyst Required: No Beliefs That Will Affect Care: None marital status: Current Living Situation: Spouse current occupational status: retired Feels Safe at Home: Yes Childhood Exposure to Second-Hand Smoke: Yes Dental Care, Regularly: Yes Physical Activity Frequency: 3-4 Times per Week Seatbelt Use: always Sunscreen Use: Yes Assistive Devices: Glasses Review of Systems Review of Systems: All systems reviewed & are unremarkable except as noted in HPI & below Physical Exam Constitutional: WD/WN, vitals as above Eyes: PERRL, conjunctivae normal, anicteric sclerae ENMT: external ear and nose normal, oropharynx normal Respiratory: normal respiratory effort, lungs clear to auscultation Cardiovascular: RRR, no murmur, no edema Gastrointestinal (Abdomen): normal bowel sounds, soft, nontender, no hepatosplenomegaly Skin: no rashes, warm and dry Neurologic: CN's II-XI intact bilaterally; no focal motor deficits Psychiatric: A+Ox3, euthymic affect Results & Data Results & Data ([facility]) Vital Signs (Past 12 Hours) Vital Signs Temp Pulse Resp BP Pulse Ox 12/21/19 23:34 77 21 165/100 H 98 12/21/19 22:38 99 12/21/19 20:54 36.6 C 89 89 H 158/84 H 97 Laboratory Results Laboratory Results - last 24 hr 12/21/19 12/21/19 12/21/19 22:03 22:03 22:03 WBC 5.14 RBC 4.58 L Hgb 13.9 L Hct 40.3 L MCV 88.0 MCH 30.3 MCHC 34.5 RDW Std Deviation 44.2 RDW Coeff of Red 13.7 Plt Count 145 MPV 9.0 Immature Gran % (Auto) 0.4 Neut % (Auto) 84.4 Lymph % (Auto) 6.8 [place] % (Auto) 7.8 Eos % (Auto) 0.4 Baso % (Auto) 0.2 Neut # (Auto) 4.34 Lymph # (Auto) 0.35 L [place] # (Auto) 0.40 Eos # (Auto) 0.02 Baso # (Auto) 0.01 Immature Gran # (Auto) 0.02 PT 11.9 INR 1.1 APTT 26.3 PTT Ratio 0.9 Sodium 142 Potassium 3.4 L Chloride 109 H Carbon Dioxide 24 Anion Gap 9.0 BUN 12 Creatinine 1.01 Est Cr Clr Drug Dosing 76.7 Est GFR ( Amer) 84.5 Est GFR (Non-Af Amer) 72.9 BUN/Creatinine Ratio 11.9 Glucose 119 H Calcium 8.6 Magnesium 2.0 Total Bilirubin 0.9 AST 26 ALT 34 Alkaline Phosphatase 50 Troponin I 0.046 H* Total Protein 7.1 Albumin 3.7 Globulin 3.4 Albumin/Globulin Ratio 1.1 Lipase 125 TSH 0.906 Urine Color Urine Appearance Urine pH Ur Specific [place] Urine Protein Urine Glucose (UA) Urine Ketones Urine Blood Urine Nitrite Urine Bilirubin Urine Urobilinogen Ur Leukocyte Esterase Lyme Disease IgG Ab Lyme Disease IgM Ab 12/21/19 12/21/19 22:03 22:10 WBC RBC Hgb Hct MCV MCH MCHC RDW Std Deviation RDW Coeff of Red Plt Count MPV Immature Gran % (Auto) Neut % (Auto) Lymph % (Auto) [place] % (Auto) Eos % (Auto) Baso % (Auto) Neut # (Auto) Lymph # (Auto) [place] # (Auto) Eos # (Auto) Baso # (Auto) Immature Gran # (Auto) PT INR APTT PTT Ratio Sodium Potassium Chloride Carbon Dioxide Anion Gap BUN Creatinine Est Cr Clr Drug Dosing Est GFR ( Amer) Est GFR (Non-Af Amer) BUN/Creatinine Ratio Glucose Calcium Magnesium Total Bilirubin AST ALT Alkaline Phosphatase Troponin I Total Protein Albumin Globulin Albumin/Globulin Ratio Lipase TSH Urine Color Yellow Urine Appearance Clear Urine pH 5.5 Ur Specific [place] 1.016 Urine Protein Negative Urine Glucose (UA) Negative Urine Ketones Negative Urine Blood Negative Urine Nitrite Negative Urine Bilirubin Negative Urine Urobilinogen Negative Ur Leukocyte Esterase Negative Lyme Disease IgG Ab Negative Lyme Disease IgM Ab Negative Code Status & VTE Plan Code Status Full Supervising Physician Co-Signing Physician Notes Patient seen and examined, chart reviewed, case discussed with Dr. Guerra and I agree with his assessment and plan as documented above. Briefly, patient is a 74yo male presenting with multiple episodes of feeling flushed, warmth in upper chest, neck and face, near syncope. No CP/Palpitations/Seizure/LOC On exam patient is afebrile, HD stable, NAD Skin - intact HEENT - NC/AT, PERRL, EOMI, Neck supple, no JVD Heart- +S1/S2, regular, no m/r/g Lungs - CTA Abd - +BS, soft, NT/ND Ext - No edema Labs and images reviewed. MIld elevation in troponin Assessment/Plan - 74yo C male presenting with near-syncopal episodes, feeling of flushing of head/chest. ?transient arrhythmia - patient with history of ventricular arrhythmia in the past s/p ablation -Telemetry monitoring -Electrolyte repletion -Repeat troponin -REmainder of plan as above Resident Activity Tracking Resident Involvement: Resident Care Provided Care Provided: Adult [facility] Medicine
[2019-12-22] MEDS ORDERED: ONDANSETRON INJ 2 MG/ML 2 ML VIAL IV PRN (01:44)
[2019-12-22] MEDS ORDERED: ACETAMINOPHEN 325 MG TAB PO PRN (01:44)
[2019-12-22] MEDS ORDERED: MELATONIN 3 MG TAB PO PRN (01:44)
[2019-12-22] MEDS ORDERED: ALUMINUM/MAGNESIUM SUSP 30 ML UDC PO PRN (01:44)
[2019-12-22] MEDS: TADALAFIL~ORDER AWAITING ACTION SCH ×3 (02:15→15:39)
[2019-12-22 05:03] LABS: BUN Creatinine Ratio 10.2 (10-20); Calcium 8.2 mg/dl (8.5-10.1); Creatinine Clr Calc Pharmacy 74.6 ml/min; Est GFR (African American) 84.5; Est GFR (Non-African American) 72.9; Potassium 3.7 mmol/L (3.5-5.1)
[2019-12-22 05:06] LABS: Basophils # (auto) 0.01 K/uL (0-0.2); Basophils % (auto) 0.3 %; Eosinophils # (auto) 0.04 K/uL (0-0.5); Eosinophils % (auto) 1.1 %; Hematocrit (blood only) 38.2 % (42-52); Hemoglobin 12.9 g/dL (14.0-18.0); Immature Granulocytes # (auto) 0.01 K/uL (0.00-0.02); Immature Granulocytes % (auto) 0.3 %; Lymphocytes # (auto) 0.55 K/uL (1.2-3.4); Lymphocytes % (auto) 14.9 %; Mean Corpuscular Hgb Conc 33.8 g/dL (32-36); Mean Corpuscular Volume 88.8 fL (80-100); Mean Platelet Volume 9.2 fL (7.4-10.4); Monocytes # (auto) 0.46 K/uL (0.11-0.59); Monocytes % (auto) 12.4 %; Neutrophils # (auto) 2.63 K/uL (1.4-6.5); Platelet Count 128 K/uL (130-400); RDW Coefficient of Variation 13.8 % (11.5-14.5); RDW Standard Deviation 44.8 fL (36.4-46.3)
[2019-12-22 05:07] LABS: Troponin I 0.043 ng/ml (0-0.045)
--- NOTE | 2019-12-22 05:07 | Billing Data ---
Date of Service December 22, 2019 Coding Level of Care Code 79593 OBS Care - Level 3
--- NOTE | 2019-12-22 07:45 | XRay Report ---
XR chest 2V PA/lateral HISTORY: Vague atypical chest pain. COMPARISON: None. FINDINGS: The lungs are clear. Cardiac silhouette is normal in size. No pleural effusions. No pneumot horax. IMPRESSION: No acute process. ACT 112: Negative or not required by law. Electronically signed by: Sebastien Brizuela M.D. 12/22/2019 7:44 AM
[2019-12-22] MEDS ORDERED: CHOLECALCIFEROL 1,000 UNITS 25 MCG TAB PO SCH (09:00)
[2019-12-22] MEDS ORDERED: ASPIRIN 81 MG ECTAB PO SCH (09:00)
[2019-12-22] MEDS ORDERED: NON-FORMULARY MEDICATION (Saw Palmetto 500 MG) PO SCH (09:00)
[2019-12-22] MEDS ORDERED: ENOXAPARIN INJ 40 MG/0.4 ML SYR SQ SCH (09:00)
[2019-12-22] MEDS ORDERED: ARGININE HCL PO SCH (09:00)
[2019-12-22] MEDS ORDERED: POTASSIUM CHLORIDE 20 MEQ TABCR PO SCH (09:00)
[2019-12-22] MEDS ORDERED: CYANOCOBALAMIN 500 MCG TABLET (VITAMIN B-12) PO SCH (09:00)
[2019-12-22] MEDS ORDERED: ATORVASTATIN 10 MG TAB PO SCH (09:00)
--- NOTE | 2019-12-22 11:44 | Cardiology Consultation ---
Date of Consultation December 22, 2019 Assessment & Plan (1) Near syncope: Mr. 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 The initial episode occurred on 12/21/2019 at around 0200 during urination -- he developed a sensation of flushing in his head and chest, a vague sense of nausea, followed by profound near-syncope. states that he seems "out of it" and appears ashen with these episodes -- but patient has not had any LOC nor has he collapsed. Later in the morning when eating breakfast patient had additional episode. These episodes seem to be brief lasting for only a few seconds and quickly resolving. Patient denies any associated symptoms otherwise. He denies any sensation of dyspnea, palpitations, heart skipping, or any chest discomfort. These appear to have a vagal component by description (vague sensation of nausea with all episodes, and one occurred during urination) and thus far his telemetry has been unremarkable. Recommend the following: -- Echocardiogram to evaluate LV systolic function, structural integrity. -- If heart structurally and functionally normal he may be discharged to home. -- 30 day cardiac event monitor at the time of discharge. -- Follow-up with [facility] 4 to 6 weeks after discharge to review her and symptoms. -- Patient was encouraged to maintain a well hydrated status. (2) Syncope: -- As outlined above. History of Present Illness Reason for Consultation: -- Recurrent Near-Syncope. Requesting Physician: Desean Arriaga Attending Physician: Obi Dalal MD History of Present Illness Mr. 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 Patient states that on 12/21/2019 at around 0200 patient woke up and while urinating he developed a sensation of flushing in his head and chest, a vague sense of nausea, followed by profound near-syncope. states that he seems "out of it" and appears ashen with these episodes -- but patient has not had any LOC nor has he collapsed. Later in the morning when eating breakfast patient had additional episode. These episodes seem to be brief lasting for only a few seconds and quickly resolving. Patient describes it as feeling like his body is "shutting down". Patient denies any associated symptoms otherwise. He denies any sensation of dyspnea, palpitations, heart skipping, or any chest discomfort. Patient was driving back here from [place] yesterday and was evaluated at a hospital in [place]. At that facility -- patient had a chest x-ray, head CT, blood work -- all of which were unremarkable. They diagnosed him with "dehydration" and gave him some IV fluids and subsequently discharged him. After that he and his drove back to [employer] While travelling in the car patient had 3 more of these episodes -- please note that his drove him home. Therefore he presented to [facility] for further evaluation. Since he has been here, his telemetry monitoring is unremarkable. Patient questions that he may have had a miniature episode" this morning at 0758 -- but no arrhythmias were seen on his telemetry at that time, nor were his symptoms as severe as the day before. Patient denies any recent changes any caloric intake, fluid intake, or changes in his medications. He has not been ill in any other way. The only other time that he felt this way was about 25 years ago when he had such frequent PVCs -- but that following his ablation in 2009 he has not noticed any PVCs or palpitations. Allergies Allergy/AdvReac Type Severity Reaction Status Date / Time No Known Allergies Allergy Verified 12/21/19 22:30 Home Medications Home Medications Medication Instructions Recorded Confirmed Type arginine HCl (L-arginine) 1,000 mg 1 tab PO BID tab 09/08/18 12/21/19 History tablet aspirin 81 mg tablet,delayed 81 mg PO QAM tab 09/08/18 12/21/19 History release cyanocobalamin (vitamin B-12) 500 500 mcg PO QAM tab 09/08/18 12/21/19 History mcg tablet cholecalciferol (vitamin D3) 1,000 units PO BID 09/22/18 12/21/19 History melatonin 10 mg PO HS PRN 09/22/18 12/21/19 History levomefolate Ca 3 mg-B6 35 1 cap PO BID #180 cap 02/25/19 12/21/19 Rx mg-meB12 2 mg-algal oil 90.314 mg capsule tadalafil 5 mg tablet 5.5 mg PO DAILY #30 tab 08/07/19 12/21/19 Rx CDB oil 1 dose SUBLINGUAL UD PRN 10/12/19 12/21/19 History ibuprofen 400 mg tablet 400 mg PO Q8H PRN 10/12/19 12/21/19 History saw palmetto 500 mg capsule 500 mg PO TID 10/30/19 12/21/19 History atorvastatin 10 mg tablet 10 mg PO QAM #90 tab 11/17/19 12/21/19 Rx zaleplon 5 mg capsule 5 mg PO DAILY PRN #30 cap 11/23/19 12/21/19 Rx Patient History Medical History Acute exacerbation of chronic low back pain BPH (benign prostatic hyperplasia) BPH (benign prostatic hyperplasia) Dyslipidemia Encounter for pre-operative examination Hyperlipidemia Inguinal hernia Leg length discrepancy Lumbar facet joint syndrome Neuropathy FEET (BOTTOM)/TOE NEUROPATHY Osteoarthritis Osteoarthritis PVC (premature ventricular contraction) NO ISSUES S/P ABLATION Shoulder pain, right Surgical History History of cardiac radiofrequency ablation History of right knee joint replacement History of surgery Aneurysmectomy History of total left knee replacement History of transurethral resection of prostate History of urologic surgery UROLIFT Hx of appendectomy Hx of craniotomy ANEURYSM REPAIR D/T "INTACT ANUERYSM" (1998) Hx of melanoma excision BACK S/P hernia repair (10/13/18) Bilateral inguinal hernia with left side direct and indirect with lipoma, right side indirect with large lipoma 10/13/18 Dr. Mccurdy. Family History Father Hx of cardiac disorder Mother Heart disease Breast cancer Hypertension Kidney malignant neoplasm Unknown Breast cancer Family/Other Prostate cancer Family/Other Myocardial infarction Denies family history of Ovarian cancer Colorectal cancer Social History Smoking Status: Former smoker Second Hand Exposure: No; Do You Dip or Chew Tobacco: No; Hx Alcohol Use: No Hx Substance Use: No Preferred Language: Solomon Islander Communication Ability: Effective Visual Impairment: No Limitations Hearing Ability: Normal Biomedical Photographer Required: No Beliefs That Will Affect Care: None marital status: Current Living Situation: Spouse current occupational status: retired Feels Safe at Home: Yes Childhood Exposure to Second-Hand Smoke: Yes Dental Care, Regularly: Yes Physical Activity Frequency: 3-4 Times per Week Seatbelt Use: always Sunscreen Use: Yes Assistive Devices: Glasses Physical Exam Physical Exam: GENERAL: Patient in no acute distress. HEENT: Head is atraumatic, normocephalic. EOM's intact. Facies symmetric. No perioral cyanosis. NECK: No JVD. JVP is at the level of the clavicle sitting upright. Carotid upstrokes are + 2 bilaterally. No bruits are noted. CHEST/LUNGS: Clear to auscultation throughout all lung cabrera. No wheezes, rales, or crackles. CVS: S1 and S2 are regular without murmurs, gallops, or rubs. PMI is nondisplaced. No lifts, heaves, or thrills. No abdominal aortic or renal bruits. ABDOMINAL EXAM: Bowel sounds are present. No masses, organomegaly, or tenderness. EXTREMITIES: No clubbing or cyanosis. No edema. Intact posterior tibial and radial pulses bilaterally. NEUROLOGIC EXAM: Patient is awake, alert, and oriented. Pleasant and cooperative. Answers questions appropriately. Speech is clear. Normal movement in all 4 extremities. Gait pattern is unremarkable. TELEMETRY: -- NSR at normal rates. -- Rare ectopic beats. Results & Data ([facility]) Vital Signs (Past 12 Hours) Vital Signs Temp Pulse Pulse Resp BP BP BP 12/22/19 10:30 64 12/22/19 07:15 36.6 C 76 18 143/84 H 12/22/19 07:11 64 12/22/19 04:00 36.6 C 68 18 147/85 H 12/22/19 02:28 79 12/22/19 01:44 12/22/19 01:00 78 17 137/84 12/22/19 00:30 77 18 148/103 H 12/22/19 00:10 36.7 C 82 14 155/88 H 12/22/19 00:00 79 19 158/96 H Pulse Ox Pulse Ox 12/22/19 10:30 12/22/19 07:15 96 12/22/19 07:11 12/22/19 04:00 93 12/22/19 02:28 12/22/19 01:44 96 12/22/19 01:00 96 12/22/19 00:30 96 12/22/19 00:10 96 12/22/19 00:00 98 PG Care Time/CCT Total # of Minutes Spent Total Time Spent with Patient: Total time spent is greater than 50% in coordination of care (as documented) at patient's floor/unit and/or counseling patient: 45 minutes Coding Level of Care Code 53854 OBS Care - Level 3 Diagnoses Near syncope R55 Syncope R55
--- NOTE | 2019-12-22 13:20 | XCELERA ---
[id number]
--- NOTE | 2019-12-23 13:50 | Electrocardiogram Report ---
Test Reason : Blood Pressure : / mmHG Vent. Rate : 074 BPM Atrial Rate : 074 BPM P-R Int : 136 ms QRS Dur : 098 ms QT Int : 414 ms P-R-T Axes : 052 000 046 degrees QTc Int : 459 ms Normal sinus rhythm Normal ECG When compared with ECG of 25-SEP-2018 09:45, No significant change was found Confirmed by Obi Dalal ([id number]) on 12/23/2019 1:50:26 PM Referred By: REFERRED SELF Confirmed By:Obi Dalal
--- NOTE | 2019-12-28 22:32 | Discharge Summary ---
Date of Service December 22, 2019 Admission HPI Per Admitting Provider 74-year-old male with past medical history BPH, hyperlipidemia, OA presents with concerns of hot flashes and near syncope. Onset about 24 hours ago. Patient notes that last time he had anything similar to this was about 25 to 30 years ago when he had PVCs for which he eventually underwent cardiac ablation. Yesterday morning around 2 AM patient woke up to urinate and during urination he felt this episode of flushing in his chest and head followed by near syncope sensation, and quickly subsided. Later in the morning when eating breakfast patient had additional episode. All these episodes lasted for a few seconds and quickly subside thereafter. Patient describes as feeling like his body is "shutting down." Earlier today patient was in [place] and visited a hospital there for these complaints. Per patient they ordered chest x-ray, head CT, blood work which all came back unremarkable. They given some IV fluids and discharged him. After that his and him drove back to [place]. While in the car patient had 3 additional episodes of the same. Again quickly resolving after a few seconds. Patient notes no exacerbating or alleviating factors as these episodes appear to be random in nature. Patient does not feel these episodes coming on prior to occurring. Patient denies any fevers, chills, sweats, nausea, vomiting, diarrhea, chest pain, palpitations, shortness of breath, abdominal pain, urinary symptoms, visual changes, impaired speech or swallowing, confusion, headache, known sick contacts, or recent medication changes. Patient with no other acute concerns or complaints. Patient does note that he feels a lot of anxiety over the past month or so regarding the political climate and disagreements within his own family. Patient contacted his PCPs office who then referred him to our ER for further evaluation and management. Pertinent labs: Potassium 3.4, troponin 0 0.046, otherwise largely unremarkable CBC and CMP EKG: Normal sinus rhythm. When compared to ECG from September 25, 2018, no significant changes were found Chest x-ray: No acute process per interpretation ER course: NSS 1 L Principal Diagnosis Near syncope Discharge Exam Constitutional: WD/WN, vitals as above Eyes: PERRL, conjunctivae normal, anicteric sclerae ENMT: external ear and nose normal, oropharynx normal Respiratory: normal respiratory effort, lungs clear to auscultation Cardiovascular: RRR, no murmur, no edema Gastrointestinal (Abdomen): normal bowel sounds, soft, nontender, no hepatosplenomegaly Skin: no rashes, warm and dry Neurologic: CN's II-XI intact bilaterally; no focal motor deficits Psychiatric: A+Ox3, euthymic affect Discharge Data Allergies Allergy/AdvReac Type Severity Reaction Status Date / Time No Known Allergies Allergy Verified 12/21/19 22:30 Consultations 12/21/19 23:34 ED Decision to Admit Stat 12/22/19 08:25 Consult Cardiology Routine Hospital Course (1) Near syncope: Appreciate input from cardio: Mr. 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 The initial episode occurred on 12/21/2019 at around 0200 during urination -- he developed a sensation of flushing in his head and chest, a vague sense of nausea, followed by profound near-syncope. states that he seems "out of it" and appears ashen with these episodes -- but patient has not had any LOC nor has he collapsed. Later in the morning when eating breakfast patient had additional episode. These episodes seem to be brief lasting for only a few seconds and quickly resolving. Patient denies any associated symptoms otherwise. He denies any sensation of dyspnea, palpitations, heart skipping, or any chest discomfort. These appear to have a vagal component by description (vague sensation of nausea with all episodes, and one occurred during urination) and thus far his telemetry has been unremarkable. Recommend the following: -- Echocardiogram to evaluate LV systolic function, structural integrity -- 30 day cardiac event monitor at the time of discharge. -- Follow-up with [facility] Cardiology 4 to 6 weeks after discharge to review her and symptoms. -- Patient was encouraged to maintain a well hydrated status. Total Time Total Time Spent Total Time Spent (In Minutes): 32 Total Time Includes: Examination of the Patient, Discharge Planning and Medi cation Reconciliation Discharge Plan Discharge Items Patient Disposition: Home - Self-Care Reason For Visit: SYNCOPE Discharge Diagnosis: Syncope Activity: Resume your previous activity Non-emergency contact: Primary Care Provider Call non-emergency contact if: you have any medication questions Follow-up/Referrals: Eladio Pratt PA-C [Physician [employer]] - 12/31/19 3:00 pm Amina Helton MD [Primary Care Provider] - 12/29/19 11:20 am Diet: Heart Healthy Addtl Attending Provider Instructions: You have been hospitalized for an acute medical problem. During your stay at [facility], we have made an effort to correct the problem that brought you to the hospital while keeping you as comfortable as possible. Medications were used to bring your condition under control and your discharge instructions will include directions for any medications you should take after leaving the hospital. Please make sure you see your Primary Care Provider as part of your follow up plan. Followup with Dr. Pratt Pending Studies at Discharge: No Stand-Alone Forms: My [facility], Smoking Cessation Medications and DC Order Prescriptions: Continued ibuprofen 400 mg tablet 400 mg PO Q8H PRN (Reason: pain) RF: 0 CDB oil 1 dose sublingual UD PRN (Reason: Pain) RF: 0 [id number]-algal oil [Metanx (algal oil)] 3 mg-35 mg-2 mg -90.314 mg capsule 1 cap PO BID Qty: 180 RF: 1 atorvastatin 10 mg tablet 10 mg PO QAM Qty: 90 RF: 1 zaleplon 5 mg capsule 5 mg PO DAILY PRN (Reason: sleep) Qty: 30 RF: 1 tadalafil 5 mg tablet 5.5 mg PO DAILY Qty: 30 RF: 11 arginine HCl (L-arginine) 1,000 mg tablet 1 tab PO BID RF: 0 cyanocobalamin (vitamin B-12) 500 mcg tablet 500 mcg PO QAM RF: 0 aspirin 81 mg tablet,delayed release (DR/EC) 81 mg PO QAM RF: 0 saw palmetto 500 mg capsule 500 mg PO TID RF: 0 melatonin 10 mg Tablet 10 mg PO HS PRN (Reason: Sleep) RF: 0 cholecalciferol (vitamin D3) 1,000 unit capsule 1,000 units PO BID RF: 0 Discharge Orders: Discharge Order (Routine); Ordered 12/22/19 Ordered By: Desean Arriaga Admission Data Admit Date/Time: 09/22/20 00:58 Attending Provider: Desean Arriaga Admit Provider: Robinson Guerra Primary Care Provider: Amina Helton V. Other Providers: Nidia Adams Charles C. Other Interventions: Discharge Summary Assessment (RN) Last Done: 12/22/19 17:08 Coding Level of Care Code 79049 OBS Care - Discharge Diagnoses Near syncope R55
== END 2019-12-22 17:30 | disposition home or self-care (01) ==
LOC: 2N 20:50 → ED 20:50 → SUATTDRO 12-22 00:58 → 2N 12-22 01:27

== ENCOUNTER 2020-11-09 08:51 | Observation (INO) ==
--- NOTE | 2020-11-09 09:44 | Emergency Department Note ---
Impression & Plan Near syncope, Palpitations, Elevated troponin, Fatigue ED Provider Note NAME: NATALIA HURD AGE: 75 SEX: M : 1945 ARRIVES VIA: Walk-In INFORMANT: [Patient] ED PROVIDER(S): [Nabeel Covington MD] CHIEF COMPLAINT: Palpitations HISTORY OF PRESENT ILLNESS: The patient is a 75-year-old male with a history of PVCs and SVT. He had an ablation performed 10 to 15 years ago. Last fall, he was in [place] and had some issues and as a result, had a second ablation done on July 08. This was done for SVT. The patient has had intermittent dizzy spells since. He states that today, about 2 hours ago, he had a 30 to 45-minute episode of feeling dizzy and clammy. He could not feel his heart beating fast or irregular. He was not short of breath and there was no chest pain. His symptoms resolved. He presents to the ED for evaluation. The patient does have a Garcia catheter in place. He had a prostatectomy recently and the catheter is soon to be removed. He actually has an appointment in [place] for follow-up tomorrow. Of note, the patient is no longer on metoprolol. He used to be on this medication for his arrhythmias. He has been off the metoprolol since just before the ablation. REVIEW OF SYSTEMS: See HPI for pertinent positives and negatives. A total of ten systems were reviewed and were otherwise negative. PMHx/PSHx: See Below SOCIAL HISTORY: See Below. PHYSICAL EXAM: GENERAL: Patient is in no acute distress. HEENT: No acute trauma, normocephalic atraumatic, mucous membranes moist, no nasal congestion, no scleral icterus. NECK: No stridor, no adenopathy, no meningismus, trachea is midline. LUNGS: Clear to auscultation bilaterally, no wheeze, no rhonchi, breath sounds equal. HEART: Without murmurs gallops or rubs, regular rate and rhythm. ABDOMEN: Soft, nontender, bowel sounds positive, no hernias, no peritonitis. EXTREMITIES: No cyanosis or edema, full range of motion of all the joints without pain or difficulty, no signs for acute trauma. NEUROLOGIC: Oriented x 3, no acute motor or sensory deficits, no focal weakness. SKIN: No rash, no jaundice, no diaphoresis. Groin: Garcia catheter in place. DIFFERENTIAL DIAGNOSIS: Infection, dehydration, metabolic abnormality, hypo/hyperglycemia, A. fib, SVT, atrial flutter, V. tach, electrolyte disturbance, anemia, hypoxia, cardiac sources, intracerebral event, toxicologic issues, stroke, TIA, as well as other pathologies. EMERGENCY DEPARTMENT COURSE/PROCEDURES: ECG: Indication was palpitations. The ECG shows a normal sinus rhythm with a rate of 82. There is no ST ovation, no PVCs. The QTc is 446. Repeat ECG: There is a normal sinus rhythm with a rate of 75. There is no ST elevation, no PVCs. The QTc is 466. Compared to an ECG earlier, there is no significant change. Continuous Cardiac Monitoring: An order was placed for continuous cardiac monitoring. The monitor shows a rate of 86 with normal sinus rhythm. MEDICAL DECISION MAKING: There is no leukocytosis or concerning anemia. There is a normal platelet count. No significant electrolyte abnormality or kidney failure. No worrisome liver enzyme elevation. The patient appeared to be in a euthyroid state. Covid testing returned negative. ECG shows a sinus rhythm, no acute ischemia. Cardiac enzyme testing x1 is slightly elevated. This elevation could be consistent with cardiac injury or strain. Chest x-ray did not show pneumonia or CHF. A repeat ECG was done during the patient's stay, he was still in a sinus rhythm. No change compared the previous ECG. The patient presents with what sounds like near syncope and lightheadedness. He has a history of dysrhythmia. Certainly, a rhythm disturbance earlier today prior to arrival could explain his presentation and even could explain the elevated troponin. I did speak with cardiology. Hospitalization, monitoring were suggested. I spoke to the patient, I talked with the case hardener. The on-call hospitalist was consulted. Past Med/Surg History Medical History Acute exacerbation of chronic low back pain BPH (benign prostatic hyperplasia) BPH (benign prostatic hyperplasia) BPH (benign prostatic hyperplasia) Dyslipidemia Elevated troponin Encounter for pre-operative examination Hyperlipidemia Inguinal hernia Leg length discrepancy Lumbar facet joint syndrome Neuropathy FEET (BOTTOM)/TOE NEUROPATHY Osteoarthritis Osteoarthritis PAC (premature atrial contraction) PVC (premature ventricular contraction) NO ISSUES S/P ABLATION Shoulder pain, right Thrombocytopenia Surgical History History of cardiac radiofrequency ablation History of right knee joint replacement History of surgery History of total left knee replacement History of transurethral resection of prostate History of urologic surgery Hx of appendectomy Hx of craniotomy Hx of melanoma excision S/P hernia repair (10/13/18) Family History Father Hx of cardiac disorder Mother Heart disease Breast cancer Hypertension Kidney malignant neoplasm Unknown Breast cancer Family/Other Prostate cancer Family/Other Myocardial infarction Denies family history of Ovarian cancer Colorectal cancer Social History Smoking Status: Never smoker Second Hand Exposure: No; Hx Alcohol Use: No Hx Substance Use: No Preferred Language: Bhutanese Communication Ability: Effective Visual Impairment: No Limitations Hearing Ability: Normal Recenterer Required: No Beliefs That Will Affect Care: None marital status: Current Living Situation: Spouse current occupational status: retired Feels Safe at Home: Yes Childhood Exposure to Second-Hand Smoke: Yes Dental Care, Regularly: Yes Physical Activity Frequency: 3-4 Times per Week Seatbelt Use: always Sunscreen Use: Yes Assistive Devices: None Allergies Allergies Allergy/AdvReac Type Severity Reaction Status Date / Time No Known Allergies Allergy Verified 11/09/20 10:18 Home Meds Home Medications Medication Instructions Recorded Confirmed arginine HCl (L-arginine) 1,000 mg 1 tab PO BID tab 09/08/18 11/09/20 tablet aspirin 81 mg tablet,delayed 81 mg PO QAM tab 09/08/18 11/09/20 release cholecalciferol (vitamin D3) 25 1,000 units PO BID 09/22/18 11/09/20 mcg (1,000 unit) capsule melatonin 10 mg tablet 10 mg PO HS 09/22/18 11/09/20 saw palmetto 500 mg capsule 500 mg PO TID 10/30/19 11/09/20 acetaminophen 325 mg tablet 325 mg PO QID PRN 11/09/20 11/09/20 (Tylenol) zaleplon 5 mg capsule 5 - 10 mg PO HS PRN 11/09/20 11/09/20 Previous Rx's Medication Instructions Recorded levomefolate Ca 3 mg-B6 35 1 cap PO BID #180 cap 02/25/19 mg-meB12 2 mg-algal oil 90.314 mg capsule (Metanx (algal oil)) atorvastatin 10 mg tablet 10 mg PO QAM #90 tab 09/22/20 ciprofloxacin HCl 500 mg tablet 500 mg PO Q12H #6 tab 11/06/20 Results & Data (ED) Vital Signs Vital Signs - 24 hr 11/09/20 08:58 11/09/20 09:44 11/09/20 11:00 Temperature 36.4 C L Temperature Source Temporal Artery Scan Pulse Rate 86 79 Pulse Rate [Left] Pulse Rate from SpO2 Sensor Pulse Rhythm [Left] Pulse Strength [Left] Respiratory Rate 18 14 Respiratory Effort / Characteristics Non-Labored Respiratory Depth Normal Respiratory Pattern Blood Pressure 162/96 H Blood Pressure [Right Arm] Blood Pressure Mean 118 Blood Pressure Mean [Right Arm] Blood Pressure Position [Right Arm] Pulse Oximetry 97 97 100 Oxygen Delivery Method Room Air Room Air Sepsis Recent Fever Within 48 Hours No Sepsis New/Unexplained Change in Mental Status No Sepsis Action Taken by Nursing No Action Required 11/09/20 11:16 11/09/20 11:30 11/09/20 11:45 Temperature Temperature Source Pulse Rate 78 75 74 Pulse Rate [Left] 81 Pulse Rate from SpO2 Sensor 77 74 74 Pulse Rhythm [Left] Regular Pulse Strength [Left] Normal Respiratory Rate 12 14 13 Respiratory Effort / Characteristics Non-Labored Respiratory Depth Normal Respiratory Pattern Regular Blood Pressure 157/97 H 141/95 H 154/96 H Blood Pressure [Right Arm] 157/97 H Blood Pressure Mean 117 110 115 Blood Pressure Mean [Right Arm] 117 Blood Pressure Position [Right Arm] Lying Pulse Oximetry 99 98 99 Oxygen Delivery Method Room Air Room Air Room Air Sepsis Recent Fever Within 48 Hours Sepsis New/Unexplained Change in Mental Status Sepsis Action Taken by Nursing 11/09/20 12:00 11/09/20 12:15 11/09/20 12:30 Temperature Temperature Source Pulse Rate 78 87 81 Pulse Rate [Left] Pulse Rate from SpO2 Sensor 79 84 80 Pulse Rhythm [Left] Pulse Strength [Left] Respiratory Rate 13 24 16 Respiratory Effort / Characteristics Respiratory Depth Respiratory Pattern Blood Pressure 155/105 H 161/108 H 161/101 H Blood Pressure [Right Arm] Blood Pressure Mean 121 125 121 Blood Pressure Mean [Right Arm] Blood Pressure Position [Right Arm] Pulse Oximetry 98 100 99 Oxygen Delivery Method Room Air Room Air Room Air Sepsis Recent Fever Within 48 Hours Sepsis New/Unexplained Change in Mental Status Sepsis Action Taken by Nursing 11/09/20 12:45 Temperature Temperature Source Pulse Rate 76 Pulse Rate [Left] Pulse Rate from SpO2 Sensor 77 Pulse Rhythm [Left] Pulse Strength [Left] Respiratory Rate 20 Respiratory Effort / Characteristics Respiratory Depth Respiratory Pattern Blood Pressure 146/95 H Blood Pressure [Right Arm] Blood Pressure Mean 112 Blood Pressure Mean [Right Arm] Blood Pressure Position [Right Arm] Pulse Oximetry 98 Oxygen Delivery Method Room Air Sepsis Recent Fever Within 48 Hours Sepsis New/Unexplained Change in Mental Status Sepsis Action Taken by [facility] Medications Current Medication List: was personally reviewed by me Laboratory Data Attestation: I reviewed the patient's lab results. Result diagrams: 11/09/20 09:05 11/09/20 09:05 Lab Results 11/09/20 11/09/20 11/09/20 Range/Units 09:05 09:05 11:55 WBC 4.72 L (4.8-10.8) K/uL RBC 4.96 (4.7-6.1) M/uL Hgb 15.3 (14.0-18.0) g/dL Hct 44.0 (42-52) % MCV 88.7 (80-100) fL MCH 30.8 (25-34) pg MCHC 34.8 (32-36) g/dL RDW Std Deviation 44.6 (36.4-46.3) fL RDW Coeff of Red 13.8 (11.5-14.5) % Plt Count 202 (130-400) K/uL MPV 9.6 (7.4-10.4) fL Immature Gran % (Auto) 0.4 % Neut % (Auto) 65.9 % Lymph % (Auto) 16.1 % [place] % (Auto) 10.0 % Eos % (Auto) 7.4 % Baso % (Auto) 0.2 % Neut # (Auto) 3.11 (1.4-6.5) K/uL Lymph # (Auto) 0.76 L (1.2-3.4) K/uL [place] # (Auto) 0.47 (0.11-0.59) K/uL Eos # (Auto) 0.35 (0-0.5) K/uL Baso # (Auto) 0.01 (0-0.2) K/uL Immature Gran # (Auto) 0.02 (0.00-0.02) K/uL Sodium 137 (136-145) mmol/L Potassium 4.1 (3.5-5.1) mmol/L Chloride 109 H (98-107) mmol/L Carbon Dioxide 27 (21-32) mmol/L Anion Gap 1.0 L (3-11) BUN 12 (7-18) mg/dl Creatinine 1.24 (0.6-1.4) mg/dl Est Cr Clr Drug Dosing 61.5 ml/min Est GFR ( Amer) 65.5 ml/min Est GFR (Non-Af Amer) 56.5 ml/min BUN/Creatinine Ratio 9.3 L (10-20) Glucose 117 H (70-99) mg/dl Calcium 9.3 (8.5-10.1) mg/dl Magnesium 2.6 H (1.8-2.4) mg/dl Total Bilirubin 0.9 (0.2-1) mg/dl AST 31 (15-37) U/L ALT 41 (12-78) U/L Alkaline Phosphatase 66 (45-117) U/L Troponin I 0.057 H* (0-0.045) ng/ml Total Protein 7.8 (6.4-8.2) gm/dl Albumin 3.9 (3.4-5.0) gm/dl Globulin 3.9 (2.5-4.0) gm/dl Albumin/Globulin Ratio 1.0 (0.9-2) TSH 1.400 (0.300-4.500) uIu/ml COVID-19 Eval Order Covid19 at [facility] SARS-CoV-2 (PCR) (Negative) 11/09/20 Range/Units 11:55 WBC (4.8-10.8) K/uL RBC (4.7-6.1) M/uL Hgb (14.0-18.0) g/dL Hct (42-52) % MCV (80-100) fL MCH (25-34) pg MCHC (32-36) g/dL RDW Std Deviation (36.4-46.3) fL RDW Coeff of Red (11.5-14.5) % Plt Count (130-400) K/uL MPV (7.4-10.4) fL Immature Gran % (Auto) % Neut % (Auto) % Lymph % (Auto) % [place] % (Auto) % Eos % (Auto) % Baso % (Auto) % Neut # (Auto) (1.4-6.5) K/uL Lymph # (Auto) (1.2-3.4) K/uL [place] # (Auto) (0.11-0.59) K/uL Eos # (Auto) (0-0.5) K/uL Baso # (Auto) (0-0.2) K/uL Immature Gran # (Auto) (0.00-0.02) K/uL Sodium (136-145) mmol/L Potassium (3.5-5.1) mmol/L Chloride (98-107) mmol/L Carbon Dioxide (21-32) mmol/L Anion Gap (3-11) BUN (7-18) mg/dl Creatinine (0.6-1.4) mg/dl Est Cr Clr Drug Dosing ml/min Est GFR ( Amer) ml/min Est GFR (Non-Af Amer) ml/min BUN/Creatinine Ratio (10-20) Glucose (70-99) mg/dl Calcium (8.5-10.1) mg/dl Magnesium (1.8-2.4) mg/dl Total Bilirubin (0.2-1) mg/dl AST (15-37) U/L ALT (12-78) U/L Alkaline Phosphatase (45-117) U/L Troponin I (0-0.045) ng/ml Total Protein (6.4-8.2) gm/dl Albumin (3.4-5.0) gm/dl Globulin (2.5-4.0) gm/dl Albumin/Globulin Ratio (0.9-2) TSH (0.300-4.500) uIu/ml COVID-19 Eval Order SARS-CoV-2 (PCR) NEGATIVE (Negative) Administered Medications Discontinued Medications Acetaminophen (Acetaminophen 500 Mg Tab) Confirm Administered Dose 1,000 mg .ROUTE .STK-MED ONE Stop: 11/09/20 12:56 Last Admin: 11/09/20 12:58 Dose: 1,000 mg Documented by: [id number] Sodium Chloride (Nss) 500 mls @ 999 mls/hr IV .Q31M ELLEN Stop: 11/09/20 10:15 Last Infusion: 11/09/20 10:24 Dose: 0 mls/hr Documented by: [id number] Admin: 11/09/20 09:52 Dose: 999 mls/hr Documented by: [id number] Ioversol (Optiray 320 125ml) 118 ml IV ONCE ONE Stop: 11/09/20 14:43 Last Admin: 11/09/20 14:42 Dose: 118 ml Documented by: [id number] Imaging Data Radiologist's Impression: Chest X-Ray 11/09/20 09:38 XR chest 1V portable HISTORY: 75 years-old Male weakness acute weakness COMPARISON: Chest radiograph 12/21/2019 TECHNIQUE: Portable AP view of the chest FINDINGS: Cardiomediastinal and hilar silhouettes are within normal limits. No pneumothorax, pleural effusion, airspace consolidation or overt pulmonary edema. Mild chronic interstitial coarsening of the left lung base. Degenerative changes of the shoulders and spine. IMPRESSION: No acute process. ACT 112: Negative or not required by law. The above report was generated using voice recognition software. It may contain grammatical, syntax or spelling errors. Electronically signed by: James Chery M.D. 11/09/2020 10:05 AM Discharge Plan Visit Data Chief Complaint: Arrhythmia/Palpitations Stated Complaint: DIZZY,IRREGULAR HEART BEAT,HX OF SVT/PVC ED Provider: Nabeel Covington Discharge Problem: Near syncope, Palpitations, Elevated troponin, Fatigue Patient Disposition: Admitted As Inpatient Condition: Fair Discharge Instructions Interventions: ED Discharge Assessment Last Done: 11/09/20 14:14
[2020-11-09] MEDS ORDERED: SODIUM CHLORIDE 0.9% 500 ML IV SCH (09:45)
--- NOTE | 2020-11-09 10:06 | XRay Report ---
XR chest 1V portable HISTORY: 75 years-old Male weakness acute weakness COMPARISON: Chest radiograph 12/21/2019 TECHNIQUE: Portable AP view of the chest FINDINGS: Cardiomediastinal and hilar silhouettes are within normal limits. No pneumothorax, pleural effusion, airspace consolidation or overt pulmonary edema. Mild chronic interstitial coarsening of the left moo g base. Degenerative changes of the shoulders and spine. IMPRESSION: No acute process. ACT 112: Negative or not required by law. The above report was generated using voice recognition software. It may contain grammatical, syntax o r spelling errors. Electronically signed by: James Chery M.D. 11/09/2020 10:05 AM
[2020-11-09 10:17] LABS: Basophils # (auto) 0.01 K/uL (0-0.2); Basophils % (auto) 0.2 %; Eosinophils # (auto) 0.35 K/uL (0-0.5); Eosinophils % (auto) 7.4 %; Hemoglobin 15.3 g/dL (14.0-18.0); Immature Granulocytes # (auto) 0.02 K/uL (0.00-0.02); Immature Granulocytes % (auto) 0.4 %; Lymphocytes # (auto) 0.76 K/uL (1.2-3.4); Lymphocytes % (auto) 16.1 %; Mean Corpuscular Hemoglobin 30.8 pg (25-34); Mean Corpuscular Hgb Conc 34.8 g/dL (32-36); Mean Corpuscular Volume 88.7 fL (80-100); Mean Platelet Volume 9.6 fL (7.4-10.4); Monocytes # (auto) 0.47 K/uL (0.11-0.59); Neutrophils # (auto) 3.11 K/uL (1.4-6.5); Neutrophils % (auto) 65.9 %; Platelet Count 202 K/uL (130-400); RDW Coefficient of Variation 13.8 % (11.5-14.5); RDW Standard Deviation 44.6 fL (36.4-46.3); Red Blood Count 4.96 M/uL (4.7-6.1); White Blood Count 4.72 K/uL (4.8-10.8)
[2020-11-09 10:49] LABS: Albumin Level 3.9 gm/dl (3.4-5.0); Calcium 9.3 mg/dl (8.5-10.1); Magnesium 2.6 mg/dl (1.8-2.4); Potassium 4.1 mmol/L (3.5-5.1)
[2020-11-09 10:58] LABS: BUN Creatinine Ratio 9.3 (10-20); Creatinine Clr Calc Pharmacy 61.5 ml/min; Est GFR (African American) 65.5 ml/min; Est GFR (Non-African American) 56.5 ml/min
[2020-11-09 11:16] LABS: Bilirubin,Total 0.9 mg/dl (0.2-1); Globulin 3.9 gm/dl (2.5-4.0); Thyroid Stimulating Hormone 1.4 uIu/ml (0.300-4.500); Total Protein 7.8 gm/dl (6.4-8.2); Troponin I 0.057 ng/ml (0-0.045)
--- NOTE | 2020-11-09 12:50 | History & Physical Report ---
Date of Service November 09, 2020 Assessment & Plan (1) Garcia catheter in place: Plan: Garcia catheter in place/status post prostatectomy in [place]- Obtain records from [place] regarding recent procedure Garcia placed recently due to clots and urinary obstruction. Continue catheter at this time Continue Cipro 500 mg p.o. twice daily Continue francoise allen (2) Elevated troponin I level: Plan: Elevated troponin I level/PSVT status post ablation in June /palpitations- The patient will be admitted to telemetry for serial cardiac enzymes, serial EKG's, cardiac rhythm monitoring and a 2-D echocardiogram with Dopplers. Obtain records from [place] regarding recent procedure Continue aspirin 81 mg daily NSS + KCl 20 mEq at 80 mils per hour x2 L Consult cardiology (3) PSVT (paroxysmal supraventricular tachycardia): Plan: See above (4) Dyslipidemia: Plan: Continue atorvastatin History of Present Illness Chief Complaint: The patient presents to the emergency department with complaint of palpitations, lightheadedness, dizziness and sweats that have occurred 3-4 times since his ablation in [place] in June of this year, but the episode this morning lasted 45 minutes, which is of more significant duration and intensity than usual. Primary Care Provider: Amina Helton MD The patient is a 75-year-old male with a past medical history including palpitations, fatigue, PSVT, near syncope, lumbar facet joint syndrome, dyslipidemia, osteoarthritis and BPH with LUTS. He is status post ablation in June 2000 for reported SVT while in [place]. He is status post prostatectomy at approximately October 17 of this year due to enlarged prostate, and had to have a Garcia placed a few days ago in the ED here due to significant urinary clots and urinary obstruction. He was scheduled to return to [place] via train this morning, to have a follow-up related to his prostate surgery, but due to symp toms as noted above, he presented to the ED for assessment today. Allergies Allergy/AdvReac Type Severity Reaction Status Date / Time No Known Allergies Allergy Verified 11/09/20 10:18 Home Medications Medication Instructions Recorded Confirmed Type arginine HCl (L-arginine) 1,000 mg 1 tab PO BID tab 09/08/18 11/09/20 History tablet aspirin 81 mg tablet,delayed 81 mg PO QAM tab 09/08/18 11/09/20 History release cholecalciferol (vitamin D3) 25 1,000 units PO BID 09/22/18 11/09/20 History mcg (1,000 unit) capsule melatonin 10 mg tablet 10 mg PO HS 09/22/18 11/09/20 History levomefolate Ca 3 mg-B6 35 1 cap PO BID #180 cap 02/25/19 11/09/20 Rx mg-meB12 2 mg-algal oil 90.314 mg capsule (Metanx (algal oil)) saw palmetto 500 mg capsule 500 mg PO TID 10/30/19 11/09/20 History atorvastatin 10 mg tablet 10 mg PO QAM #90 tab 09/22/20 11/09/20 Rx ciprofloxacin HCl 500 mg tablet 500 mg PO Q12H #6 tab 11/06/20 11/09/20 Rx acetaminophen 325 mg tablet 325 mg PO QID PRN 11/09/20 11/09/20 History (Tylenol) zaleplon 5 mg capsule 5 - 10 mg PO HS PRN 11/09/20 11/09/20 History Past Med/Surg History Medical History (Updated 11/09/20 @ 15:34 by Todd Santos MD) Acute exacerbation of chronic low back pain BPH (benign prostatic hyperplasia) BPH (benign prostatic hyperplasia) BPH (benign prostatic hyperplasia) Dyslipidemia Elevated troponin Encounter for pre-operative examination Hyperlipidemia Inguinal hernia Leg length discrepancy Lumbar facet joint syndrome Neuropathy FEET (BOTTOM)/TOE NEUROPATHY Osteoarthritis Osteoarthritis PAC (premature atrial contraction) PVC (premature ventricular contraction) NO ISSUES S/P ABLATION Shoulder pain, right Thrombocytopenia Surgical History History of cardiac radiofrequency ablation History of right knee joint replacement History of surgery Aneurysmectomy History of total left knee replacement History of transurethral resection of prostate History of urologic surgery UROLIFT Hx of appendectomy Hx of craniotomy ANEURYSM REPAIR D/T "INTACT ANUERYSM" (1998) Hx of melanoma excision BACK S/P hernia repair (10/13/18) Bilateral inguinal hernia with left side direct and indirect with lipoma, right side indirect with large lipoma 10/13/18 Dr. Mccurdy. Family History Father Hx of cardiac disorder Mother Heart disease Breast cancer Hypertension Kidney malignant neoplasm Unknown Breast cancer Family/Other Prostate cancer Family/Other Myocardial infarction Denies family history of Ovarian cancer Colorectal cancer Social History Smoking Status: Never smoker Second Hand Exposure: No; Hx Alcohol Use: No Hx Substance Use: No Preferred Language: Bulgarian Communication Ability: Effective Visual Impairment: No Limitations Hearing Ability: Normal Locks Inspector Required: No Beliefs That Will Affect Care: None marital status: Current Living Situation: Spouse current occupational status: retired Other Information That Helps Us Care for You: No Feels Safe at Home: Yes Safety Concerns: Feels Safe At This Time Childhood Exposure to Second-Hand Smoke: Yes Dental Care, Regularly: Yes Physical Activity Frequency: 3-4 Times per Week Seatbelt Use: always Sunscreen Use: Yes Assistive Devices: None Review of Systems Review of Systems: The patient denies chest pain, shortness of breath, dyspnea on exertion, cough, lower extremity swelling, sore throat, nausea, vomiting, diarrhea , constipation, abdominal pain, pelvic pain, blood in stool, lightheadedness, dizziness, headache, memory loss, loss of consciousness, rash, imbalance, focal or generalized weakness, numbness or tingling in arms or legs, generalized arthralgias or myalgias, back or neck pain, or night sweats. The review of systems is otherwise negative other than for that already noted above, and at least 10 systems have been reviewed. Physical Exam Physical Exam: The patient is awake, alert and oriented 3, well developed and well nourished, normocephalic and atraumatic, lying in bed and in no acute distress. HEENT--PERRL, EOMI, mucous membranes and oropharynx dry. Neck--supple. No JVD. No bruits. Thyroid normal, trachea midline, no adenopathy. Heart--normal S1 and S2. No murmurs, rubs or gallops. Lungs--clear bilaterally, no respiratory distress, no accessory muscle use. Abdomen--normal bowel sounds and soft. Nontender. Nondistended, no hernias or masses, no organomegaly. Extremities--no cyanosis or clubbing. No edema. Dermatologic--normal skin turgor, normal color, no abnormal lymph nodes, no rash. Neurologic--cranial nerves II through XII grossly intact. Rheumatologic--normal range of motion. Psychiatric--normal affect. Results & Data Results & Data ([facility]) Vital Signs (Past 12 Hours) Vital Signs Temp Pulse Pulse Resp BP BP Pulse Ox 11/09/20 11:30 75 14 141/95 H 98 11/09/20 11:16 78 81 12 157/97 H 157/97 H 99 11/09/20 11:00 79 14 100 11/09/20 09:44 97 11/09/20 08:58 97.5 F L 86 18 162/96 H 97 Laboratory Results Laboratory Results WBC 4.72 K/uL (4.8-10.8) L 11/09/20 09:05 RBC 4.96 M/uL (4.7-6.1) 11/09/20 09:05 Hgb 15.3 g/dL (14.0-18.0) 11/09/20 09:05 Hct 44.0 % (42-52) 11/09/20 09:05 MCV 88.7 fL (80-100) 11/09/20 09:05 MCH 30.8 pg (25-34) 11/09/20 09:05 MCHC 34.8 g/dL (32-36) 11/09/20 09:05 RDW Std Deviation 44.6 fL (36.4-46.3) 11/09/20 09:05 RDW Coeff of Red 13.8 % (11.5-14.5) 11/09/20 09:05 Plt Count 202 K/uL (130-400) 11/09/20 09:05 MPV 9.6 fL (7.4-10.4) 11/09/20 09:05 Immature Gran % (Auto) 0.4 % 11/09/20 09:05 Neut % (Auto) 65.9 % 11/09/20 09:05 Lymph % (Auto) 16.1 % 11/09/20 09:05 [place] % (Auto) 10.0 % 11/09/20 09:05 Eos % (Auto) 7.4 % 11/09/20 09:05 Baso % (Auto) 0.2 % 11/09/20 09:05 Neut # (Auto) 3.11 K/uL (1.4-6.5) 11/09/20 09:05 Lymph # (Auto) 0.76 K/uL (1.2-3.4) L 11/09/20 09:05 [place] # (Auto) 0.47 K/uL (0.11-0.59) 11/09/20 09:05 Eos # (Auto) 0.35 K/uL (0-0.5) 11/09/20 09:05 Baso # (Auto) 0.01 K/uL (0-0.2) 11/09/20 09:05 Immature Gran # (Auto) 0.02 K/uL (0.00-0.02) 11/09/20 09:05 Sodium 137 mmol/L (136-145) 11/09/20 09:05 Potassium 4.1 mmol/L (3.5-5.1) 11/09/20 09:05 Chloride 109 mmol/L (98-107) H 11/09/20 09:05 Carbon Dioxide 27 mmol/L (21-32) 11/09/20 09:05 Anion Gap 1.0 (3-11) L 11/09/20 09:05 BUN 12 mg/dl (7-18) 11/09/20 09:05 Creatinine 1.24 mg/dl (0.6-1.4) 11/09/20 09:05 Est Cr Clr Drug Dosing 61.5 ml/min 11/09/20 09:05 Est GFR ( Amer) 65.5 ml/min 11/09/20 09:05 Est GFR (Non-Af Amer) 56.5 ml/min 11/09/20 09:05 BUN/Creatinine Ratio 9.3 (10-20) L 11/09/20 09:05 Glucose 117 mg/dl (70-99) H 11/09/20 09:05 Calcium 9.3 mg/dl (8.5-10.1) 11/09/20 09:05 Magnesium 2.6 mg/dl (1.8-2.4) H 11/09/20 09:05 Total Bilirubin 0.9 mg/dl (0.2-1) 11/09/20 09:05 AST 31 U/L (15-37) 11/09/20 09:05 ALT 41 U/L (12-78) 11/09/20 09:05 Alkaline Phosphatase 66 U/L (45-117) 11/09/20 09:05 Troponin I 0.057 ng/ml (0-0.045) H* 11/09/20 09:05 Total Protein 7.8 gm/dl (6.4-8.2) 11/09/20 09:05 Albumin 3.9 gm/dl (3.4-5.0) 11/09/20 09:05 Globulin 3.9 gm/dl (2.5-4.0) 11/09/20 09:05 Albumin/Globulin Ratio 1.0 (0.9-2) 11/09/20 09:05 TSH 1.400 uIu/ml (0.300-4.500) 11/09/20 09:05 COVID-19 Eval Order Covid19 at [facility] 11/09/20 11:55 SARS-CoV-2 (PCR) NEGATIVE (Negative) 11/09/20 11:55 Impressions Chest X-Ray 11/09/20 09:38 XR chest 1V portable HISTORY: 75 years-old Male weakness acute weakness COMPARISON: Chest radiograph 12/21/2019 TECHNIQUE: Portable AP view of the chest FINDINGS: Cardiomediastinal and hilar silhouettes are within normal limits. No pneumothorax, pleural effusion, airspace consolidation or overt pulmonary edema. Mild chronic interstitial coarsening of the left lung base. Degenerative changes of the shoulders and spine. IMPRESSION: No acute process. ACT 112: Negative or not required by law. The above report was generated using voice recognition software. It may contain grammatical, syntax or spelling errors. Electronically signed by: James Chery M.D. 11/09/2020 10:05 AM Chest CTA 11/09/20 12:45 CHEST CTA for PULMONARY ARTERIES CT DOSE: 524.20 mGycm HISTORY: Atypical chest pain TECHNIQUE: Multiaxial CT images of the chest were performed following the intravenous administration of contrast to evaluate the pulmonary arteries. Maximal intensity projection images were also obtained. A dose lowering technique was utilized adhering to the principles of ALARA. COMPARISON STUDY: None. FINDINGS: No filling defects within the pulmonary arteries to suggest a pulmonary embolus. The heart is normal in size. No pleural or pericardial effusions. Normal caliber thoracic aorta with no evidence for dissection. Limited views of the upper abdomen demonstrate a normal liver and spleen. There is a small to moderate hiatus hernia. Normal caliber esophagus. No mediastinal or hilar lymphadenopathy. No suspicious lytic or blastic osseous lesions. No pneumothorax. The central airways are patent. A 3 mm nodule within the right lung apex on image 267. No focal lung consolidations to suggest pneumonia. IMPRESSION: 1. No evidence for pulmonary embolus. 2. A 3 mm indeterminate pulmonary nodule within the right lung apex. Please refer to the chart below for recommended follow-up. Please refer to below summary of Fleischner criteria recommendations for follow- up of incidental CT nodules (Norbert Leos, Guidelines for management of small pulmonary nodules detected on CT scans: A statement from the Fleischner Society, Radiology 237: [phone].) SOLID NODULES Solitary nodule size: <6 mm * Low risk patients: no follow-up needed * high risk patients: optional CT at 12 months Solitary nodule size: 6-8 mm * Low risk patients: follow-up at 6-12 months, then consider further follow-up at 18-24 months * high risk patients: initial follow-up CT at 6-12 months and then at 18-24 months if no change Solitary nodule size: >8 mm * either low or high risk patients - consider follow-up CT at 3 months, and/or CT-PET, and/or biopsy Multiple nodules size: <6 mm * Low risk patients: no routine follow-up * high risk patients: optional CT at 12 months Multiple nodules size: 6-8 mm * Low risk patients: follow-up at 3-6 months, then consider further follow-up at 18-24 months * high risk patients: follow-up at 3-6 months, then at 18-24 months if no change Multiple nodules size: >8 mm * Low risk patients: follow-up at 3-6 months, then consider further follow-up at 18-24 months * high risk patients: follow-up at 3-6 months, then at 18-24 months if no change Note: newly detected indeterminate nodule in persons 35 years of age or older. * Low risk patients: minimal or absent history of smoking and/or other known risk factors * high risk patients: history of smoking or of other known risk factors (e.g. first degree relative with lung cancer, or exposure to asbestos, radon, uranium) * if a nodule up to 8 mm is partly solid or is ground glass further follow-up is required after 24 months to exclude possible slow growing adenocarcinoma ([place]) SUBSOLID NODULES Solitary pure ground-glass nodule * nodule size <6 mm - no CT follow-up required * nodule size >=6 mm - follow-up CT at 6-12 months, then every 2 years until 5 years Solitary part-solid nodule * nodule size <6 mm - no CT follow-up required * nodule size >=6 mm - follow-up CT at 3-6 months. If unchanged, and solid component remains <6 mm, then annual follow-up for 5 years Multiple subsolid nodules * nodule size <6 mm - follow-up CT at 3-6 months, consider further follow-up at 2 and 4 years if stable * nodule size >=6 mm - follow-up CT at 3-6 months, subsequent management based on the most suspicious nodule(s) ACT 112: Negative or not required by law. Electronically signed by: Sebastien Brizuela M.D. 11/09/2020 3:11 PM Code Status & VTE Plan Code Status Full code VTE Prophylaxis Plan VTE Prophylaxis will be ordered: Yes PG Care Time/CCT Total # of Minutes Spent Total Time Spent with Patient: Total time spent is greater than 50% in coordination of care (as documented) at patient's floor/unit and/or counseling patient: Coding Level of Care Code INT OBSERVATION CARE 70M LVL 3 Diagnoses [address] catheter in place Z97.8 Elevated troponin I level R77.8 PSVT (paroxysmal supraventricular tachycardia) I47.1 Dyslipidemia E78.5
[2020-11-09] MEDS ORDERED: ACETAMINOPHEN 500 MG TAB ONE (12:55)
--- NOTE | 2020-11-09 14:00 | Electrocardiogram Report ---
Test Reason : Blood Pressure : / mmHG Vent. Rate : 082 BPM Atrial Rate : 082 BPM P-R Int : 132 ms QRS Dur : 098 ms QT Int : 382 ms P-R-T Axes : 059 -03 075 degrees QTc Int : 446 ms Normal sinus rhythm Incomplete right bundle branch block When compared with ECG of 21-DEC-2019 22:18, No significant change was found Confirmed by Duglas Navarrete ([id number]) on 11/09/2020 2:00:47 PM Referred By: REFERRED SELF Confirmed By:Marcelo Navarrete
[2020-11-09] MEDS ORDERED: OPTIRAY 320 125ml IV ONE (14:42)
[2020-11-09] MEDS ORDERED: ACETAMINOPHEN 325 MG TAB PO PRN (15:02)
[2020-11-09] MEDS ORDERED: NITROGLYCERIN SL 0.4 MG/TAB TAB SL PRN (15:02)
[2020-11-09] MEDS ORDERED: ONDANSETRON INJ 2 MG/ML 2 ML VIAL IV PRN (15:02)
[2020-11-09] MEDS ORDERED: ZALEPLON 5 MG CAPSULE PO PRN (15:02)
--- NOTE | 2020-11-09 15:13 | CT Scan Report ---
CHEST CTA for PULMONARY ARTERIES CT DOSE: 524.20 mGycm HISTORY: Atypical chest pain TECHNIQUE: Multiaxial CT images of the chest were performed following the intravenous administration of contrast to evaluate the pulmonary arteries. Maximal intensity projection images were also obtaine d. A dose lowering technique was utilized adhering to the principles of ALARA. COMPARISON STUDY: None. FINDINGS: No filling defects within the pulmonary arteries to suggest a pulmonary embolus. The heart is normal in size. No pleural or pericardial effusions. Normal caliber thoracic aorta with no evidenc e for dissection. Limited views of the upper abdomen demonstrate a normal liver and spleen. There is a small to moderate hiatus hernia. Normal caliber esophagus. No mediastinal or hilar lymphadenopathy. No suspicious lytic or blastic osseous lesions. No pneumothorax. The central airways are patent. A 3 mm nodule within the right lung apex on image 267. No focal lung consolidations to suggest pneumonia . IMPRESSION: 1. No evidence for pulmonary embolus. 2. A 3 mm indeterminate pulmonary nodule within the right lung apex. Please refer to the chart below for recommended follow-up. Please refer to below summary of Fleischner criteria recommendations for follow-up of incidental CT n odules (Norbert Leos, Guidelines for management of small pulmonary nodules detected on CT scans: A sta tement from the Fleischner Society, Radiology 237: [phone].) SOLID NODULES Solitary nodule size: <6 mm * Low risk patients: no follow-up needed * high risk patients: optional CT at 12 months Solitary nodule size: 6-8 mm * Low risk patients: follow-up at 6-12 months, then consider further follow-up at 18-24 months * high risk patients: initial follow-up CT at 6-12 months and then at 18-24 months if no change Solitary nodule size: >8 mm * either low or high risk patients - consider follow-up CT at 3 months, and/or CT-PET, and/or biopsy Multiple nodules size: <6 mm * Low risk patients: no routine follow-up * high risk patients: optional CT at 12 months Multiple nodules size: 6-8 mm * Low risk patients: follow-up at 3-6 months, then consider further follow-up at 18-24 months * high risk patients: follow-up at 3-6 months, then at 18-24 months if no change Multiple nodules size: >8 mm * Low risk patients: follow-up at 3-6 months, then consider further follow-up at 18-24 months * high risk patients: follow-up at 3-6 months, then at 18-24 months if no change Note: newly detected indeterminate nodule in persons 35 years of age or older. * Low risk patients: minimal or absent history of smoking and/or other known risk factors * high risk patients: history of smoking or of other known risk factors (e.g. first degree relative with lung cancer, or exposure to asbestos, radon, uranium) * if a nodule up to 8 mm is partly solid or is ground glass further follow-up is required after 24 m onths to exclude possible slow growing adenocarcinoma ([place]) SUBSOLID NODULES Solitary pure ground-glass nodule * nodule size <6 mm - no CT follow-up required * nodule size >=6 mm - follow-up CT at 6-12 months, then every 2 years until 5 years Solitary part-solid nodule * nodule size <6 mm - no CT follow-up required * nodule size >=6 mm - follow-up CT at 3-6 months. If unchanged, and solid component remains <6 mm, then annual follow-up for 5 years Multiple subsolid nodules * nodule size <6 mm - follow-up CT at 3-6 months, consider further follow-up at 2 and 4 years if sta ble * nodule size >=6 mm - follow-up CT at 3-6 months, subsequent management based on the most suspiciou s nodule(s) ACT 112: Negative or not required by law. Electronically signed by: Sebastien Brizuela M.D. 11/09/2020 3:11 PM
[2020-11-09] MEDS ORDERED: MELATONIN 3 MG TAB PO PRN (15:41)
[2020-11-09] MEDS: NSS + 20MEQ KCL 20 MEQ/1,000 ML BAG IV SCH (16:36)
--- NOTE | 2020-11-09 17:52 | XCELERA ---
[id number]
--- NOTE | 2020-11-09 18:40 | Cardiology Consultation ---
Date of Consultation November 09, 2020 Assessment & Plan (1) Elevated troponin I level: He has a very mild elevation in his cardiac biomarkers, just above the limit of normal. His symptoms today did not involve any chest pain. He is not known to have cardiac disease and in fact exercises regularly. He had a recent cardiac evaluation which involve stress echocardiography. This was reportedly normal. I Do not think this is an acute coronary syndrome. Possibly related to an extended period of high heart rates, although not confirmed. I do not believe he requires any additional evaluation in this regard. (2) Near syncope: It seems he has been having symptoms of dizziness, presyncope and confusion for some time. He may have had a neurological evaluation at some point. I cannot find a good correlation in his record between symptoms and arrhythmia. Remotely his symptoms may have been related to brief episodes of ventricular tachycardia and frequent ventricular ectopy. However, he claims to have had symptoms recently and did wear an event monitor as an outpatient. There is also no record available of the details regarding his recent ablation. At this point I think we need to confirm a correlation between his symptoms and any arrhythmia. If the correlation can be made then recommendations for treatment of his arrhythmia can be discussed. In the absence of any correlation, additional etiologies, possibly neurologic should be entertained for his symptoms. History of Present Illness Reason for Consultation: Elevated troponin, dizziness Requesting Physician: Tom Attending Physician: Todd Santos MD History of Present Illness The patient is a 75-year-old gentleman with an extensive cardiac history primarily involving dysrhythmia. It seems that he had a very remote EP procedure and ablation which was unsuccessful for symptomatic PVCs. In 2009 the patient underwent repeat ablation in [place] for RV OT PVCs and this appears to have been successful. More recently, the patient has been experiencing symptoms of dizziness and confusion. He states that these episodes always happen while at rest. The generally are very brief in nature and do not involve a sense of palpitation or chest pain. He has never suffered syncope. Based on the recurrent nature of the symptoms he was evaluated in [facility] and actually underwent repeat electrophysiologic testing and ablation on July 08 at [facility]. He states that since that time his symptoms have recurred, but are not as severe. This morning however, he did experience a more extended episode of symptoms. Again this primarily involves confusion and dizziness. He has a sense of presyncope but has never actually suffered syncope. He is not aware of palpitations at this time. He presented to the emergency room for evaluation where he was discovered to have some elevation in his cardiac biomarkers and admitted for observation. He did not have chest pain at any time during these episodes. He is an active individual who generally rides a bike regularly and is able to exercise at the [facility]. He also underwent stress echocardiography earlier this year in anticipation of a prostate surgery. He is not known to have any coronary disease. Allergies Allergy/AdvReac Type Severity Reaction Status Date / Time No Known Allergies Allergy Verified 11/09/20 10:18 Home Medications Medication Instructions Recorded Confirmed Type arginine HCl (L-arginine) 1,000 mg 1 tab PO BID tab 09/08/18 11/09/20 History tablet aspirin 81 mg tablet,delayed 81 mg PO QAM tab 09/08/18 11/09/20 History release cholecalciferol (vitamin D3) 25 1,000 units PO BID 09/22/18 11/09/20 History mcg (1,000 unit) capsule melatonin 10 mg tablet 10 mg PO HS 09/22/18 11/09/20 History levomefolate Ca 3 mg-B6 35 1 cap PO BID #180 cap 02/25/19 11/09/20 Rx mg-meB12 2 mg-algal oil 90.314 mg capsule (Metanx (algal oil)) saw palmetto 500 mg capsule 500 mg PO TID 10/30/19 11/09/20 History atorvastatin 10 mg tablet 10 mg PO QAM #90 tab 09/22/20 11/09/20 Rx ciprofloxacin HCl 500 mg tablet 500 mg PO Q12H #6 tab 11/06/20 11/09/20 Rx acetaminophen 325 mg tablet 325 mg PO QID PRN 11/09/20 11/09/20 History (Tylenol) zaleplon 5 mg capsule 5 - 10 mg PO HS PRN 11/09/20 11/09/20 History Patient History Medical History (Updated 11/09/20 @ 15:34 by Todd Santos MD) Acute exacerbation of chronic low back pain BPH (benign prostatic hyperplasia) BPH (benign prostatic hyperplasia) BPH (benign prostatic hyperplasia) Dyslipidemia Elevated troponin Encounter for pre-operative examination Hyperlipidemia Inguinal hernia Leg length discrepancy Lumbar facet joint syndrome Neuropathy FEET (BOTTOM)/TOE NEUROPATHY Osteoarthritis Osteoarthritis PAC (premature atrial contraction) PVC (premature ventricular contraction) NO ISSUES S/P ABLATION Shoulder pain, right Thrombocytopenia Surgical History History of cardiac radiofrequency ablation History of right knee joint replacement History of surgery Aneurysmectomy History of total left knee replacement History of transurethral resection of prostate History of urologic surgery UROLIFT Hx of appendectomy Hx of craniotomy ANEURYSM REPAIR D/T "INTACT ANUERYSM" (1998) Hx of melanoma excision BACK S/P hernia repair (10/13/18) Bilateral inguinal hernia with left side direct and indirect with lipoma, right side indirect with large lipoma 10/13/18 Dr. Mccurdy. Family History Father Hx of cardiac disorder Mother Heart disease Breast cancer Hypertension Kidney malignant neoplasm Unknown Breast cancer Family/Other Prostate cancer Family/Other Myocardial infarction Denies family history of Ovarian cancer Colorectal cancer Social History Smoking Status: Never smoker Second Hand Exposure: No; Hx Alcohol Use: No Hx Substance Use: No Preferred Language: Danish Communication Ability: Effective Visual Impairment: No Limitations Hearing Ability: Normal Stencil Inspector Required: No Beliefs That Will Affect Care: None marital status: Current Living Situation: Spouse current occupational status: retired How many Children do You have: 1 Other Information That Helps Us Care for You: No Feels Safe at Home: Yes Safety Concerns: Feels Safe At This Time Childhood Exposure to Second-Hand Smoke: Yes Dental Care, Regularly: Yes Physical Activity Frequency: 3-4 Times per Week Seatbelt Use: always Sunscreen Use: Yes Assistive Devices: None Review of Systems Review of Systems: All systems reviewed & are unremarkable except as noted in HPI & below Physical Exam Physical Exam: The patient is alert and oriented. Mood and affect appeared normal. He answered all questions appropriately. HEENT: Pupils are equal and reactive to light and accommodation. Extraocular movements are intact. The sclerae are anicteric. Neuro: Cranial nerves intact Neck: Patient's neck is supple. He has palpable carotid pulses bilaterally without bruits on auscultation. There is no evidence of jugular venous distention. The thyroid is not enlarged. Lungs: Clear to auscultation bilaterally. He has good air movement without use of accessory muscles. No rales wheezes or rhonchi. Cardiac: Heart demonstrates a regular rate and rhythm. Normal S1 and S2. No murmurs on examination. Pulses: The patient has palpable radial pulses bilaterally that are equal in intensity Extremities: There was no evidence of hypoperfusion. There is no cyanosis or clubbing. There is no edema. Skin: I did not appreciate any rashes on examination today. Results & Data ([facility]) Vital Signs (Past 12 Hours) Vital Signs Temp Pulse Pulse Resp BP BP Pulse Ox 11/09/20 15:18 36.4 C L 75 18 135/83 96 11/09/20 15:07 36.7 C 75 11/09/20 15:02 36.6 C 75 20 147/82 H 96 11/09/20 14:00 77 13 146/95 H 100 11/09/20 13:45 72 13 140/91 100 11/09/20 13:30 72 15 148/94 H 99 11/09/20 13:15 74 13 143/92 H 98 11/09/20 13:00 93 H 17 149/92 H 96 11/09/20 12:45 76 20 146/95 H 98 11/09/20 12:30 81 16 161/101 H 99 11/09/20 12:15 87 24 161/108 H 100 11/09/20 12:00 78 13 155/105 H 98 11/09/20 11:45 74 13 154/96 H 99 11/09/20 11:30 75 14 141/95 H 98 11/09/20 11:16 78 81 12 157/97 H 157/97 H 99 11/09/20 11:00 79 14 100 11/09/20 09:44 97 11/09/20 08:58 36.4 C L 86 18 162/96 H 97 Laboratory Results Abnormal Lab Results 11/09/20 11/09/20 11/09/20 09:05 09:05 11:55 WBC 4.72 L RBC 4.96 Hgb 15.3 Hct 44.0 MCV 88.7 MCH 30.8 MCHC 34.8 RDW Std Deviation 44.6 RDW Coeff of Red 13.8 Plt Count 202 MPV 9.6 Immature Gran % (Auto) 0.4 Neut % (Auto) 65.9 Lymph % (Auto) 16.1 [place] % (Auto) 10.0 Eos % (Auto) 7.4 Baso % (Auto) 0.2 Neut # (Auto) 3.11 Lymph # (Auto) 0.76 L [place] # (Auto) 0.47 Eos # (Auto) 0.35 Baso # (Auto) 0.01 Immature Gran # (Auto) 0.02 Sodium 137 Potassium 4.1 Chloride 109 H Carbon Dioxide 27 Anion Gap 1.0 L BUN 12 Creatinine 1.24 Est Cr Clr Drug Dosing 61.5 Est GFR ( Amer) 65.5 Est GFR (Non-Af Amer) 56.5 BUN/Creatinine Ratio 9.3 L Glucose 117 H Calcium 9.3 Magnesium 2.6 H Total Bilirubin 0.9 AST 31 ALT 41 Alkaline Phosphatase 66 Troponin I 0.057 H* Total Protein 7.8 Albumin 3.9 Globulin 3.9 Albumin/Globulin Ratio 1.0 TSH 1.400 COVID-19 Eval Order Covid19 at [facility] SARS-CoV-2 (PCR) 11/09/20 11/09/20 11:55 17:19 WBC RBC Hgb Hct MCV MCH MCHC RDW Std Deviation RDW Coeff of Red Plt Count MPV Immature Gran % (Auto) Neut % (Auto) Lymph % (Auto) [place] % (Auto) Eos % (Auto) Baso % (Auto) Neut # (Auto) Lymph # (Auto) [place] # (Auto) Eos # (Auto) Baso # (Auto) Immature Gran # (Auto) Sodium Potassium Chloride Carbon Dioxide Anion Gap BUN Creatinine Est Cr Clr Drug Dosing Est GFR ( Amer) Est GFR (Non-Af Amer) BUN/Creatinine Ratio Glucose Calcium Magnesium Total Bilirubin AST ALT Alkaline Phosphatase Troponin I 0.047 H* Total Protein Albumin Globulin Albumin/Globulin Ratio TSH COVID-19 Eval Order SARS-CoV-2 (PCR) NEGATIVE Diagnostic Findings Echocardiogram performed today did not reveal any significant abnormalities. Normal LV systolic function. No severe valvular heart disease. I reviewed extensive records from [facility]. This included a brain MRI, head CT, cardiac MRI and EKGs. ECG Additional Comments: EKG time of admission with normal sinus rhythm PG Care Time/CCT Total # of Minutes Spent Total Time Spent with Patient: Total time spent is greater than 50% in coordination of care (as documented) at patient's floor/unit and/or counseling patient: Coding Diagnoses Elevated troponin I level R77.8 Near syncope R55
[2020-11-09] MEDS: ACETAMINOPHEN 325 MG TAB PO PRN (20:27)
[2020-11-09] MEDS: CHOLECALCIFEROL 1,000 UNITS 25 MCG TAB PO SCH (20:28)
[2020-11-09] MEDS: CIPROFLOXACIN 500 MG TAB PO SCH (20:29)
[2020-11-09] MEDS ORDERED: NON-FORMULARY MEDICATION (Levomefol-B6-Meb12-Algal Oil [Metanx (Algal Oil)] 3 mg-35 mg-2 m PO SCH (21:00)
[2020-11-10] MEDS: ACETAMINOPHEN 325 MG TAB PO PRN ×2 (01:45→14:33)
[2020-11-10] MEDS: NSS + 20MEQ KCL 20 MEQ/1,000 ML BAG IV SCH (04:00)
[2020-11-10] MEDS ORDERED: POLYETHYLENE (MIRALAX) 17 GM PACK PO PRN (05:58)
--- NOTE | 2020-11-10 08:28 | Electrocardiogram Report ---
Test Reason : Blood Pressure : / mmHG Vent. Rate : 075 BPM Atrial Rate : 075 BPM P-R Int : 138 ms QRS Dur : 094 ms QT Int : 418 ms P-R-T Axes : 064 000 066 degrees QTc Int : 466 ms Normal sinus rhythm Normal ECG When compared with ECG of 09-NOV-2020 09:07, No significant change was found Confirmed by Duglas Navarrete ([id number]) on 11/10/2020 8:27:31 AM Referred By: REFERRED SELF Confirmed By:Marcelo Navarrete
[2020-11-10] MEDS: CHOLECALCIFEROL 1,000 UNITS 25 MCG TAB PO SCH (08:36)
[2020-11-10] MEDS: CIPROFLOXACIN 500 MG TAB PO SCH (08:36)
[2020-11-10] MEDS ORDERED: ATORVASTATIN 10 MG TAB PO SCH (09:00)
[2020-11-10] MEDS ORDERED: ASPIRIN 81 MG ECTAB PO SCH (09:00)
[2020-11-10 09:36] LABS: Basophils # (auto) 0.01 K/uL (0-0.2); Basophils % (auto) 0.3 %; Eosinophils # (auto) 0.24 K/uL (0-0.5); Hematocrit (blood only) 41.8 % (42-52); Hemoglobin 14.3 g/dL (14.0-18.0); Immature Granulocytes # (auto) 0.01 K/uL (0.00-0.02); Immature Granulocytes % (auto) 0.3 %; Lymphocytes # (auto) 0.59 K/uL (1.2-3.4); Lymphocytes % (auto) 17.2 %; Mean Corpuscular Hemoglobin 30.4 pg (25-34); Mean Corpuscular Hgb Conc 34.2 g/dL (32-36); Mean Corpuscular Volume 88.9 fL (80-100); Mean Platelet Volume 9.6 fL (7.4-10.4); Monocytes # (auto) 0.31 K/uL (0.11-0.59); Neutrophils # (auto) 2.28 K/uL (1.4-6.5); Neutrophils % (auto) 66.2 %; Platelet Count 188 K/uL (130-400); RDW Coefficient of Variation 13.6 % (11.5-14.5); RDW Standard Deviation 44.7 fL (36.4-46.3); White Blood Count 3.44 K/uL (4.8-10.8)
[2020-11-10 10:13] LABS: Albumin Level 3.5 gm/dl (3.4-5.0); BUN Creatinine Ratio 9.2 (10-20); Calcium 8.5 mg/dl (8.5-10.1); Creatinine Clr Calc Pharmacy 67.5 ml/min; Est GFR (African American) 73.3 ml/min; Est GFR (Non-African American) 63.2 ml/min; Magnesium 2.1 mg/dl (1.8-2.4)
[2020-11-10 10:19] LABS: Bilirubin,Total 0.7 mg/dl (0.2-1); Globulin 3.5 gm/dl (2.5-4.0); Troponin I 0.049 ng/ml (0-0.045)
--- NOTE | 2020-11-10 13:24 | Electrocardiogram Report ---
Test Reason : Blood Pressure : / mmHG Vent. Rate : 070 BPM Atrial Rate : 070 BPM P-R Int : 136 ms QRS Dur : 092 ms QT Int : 414 ms P-R-T Axes : 063 004 066 degrees QTc Int : 447 ms Normal sinus rhythm When compared with ECG of 09-NOV-2020 11:10, (unconfirmed) No significant change was found Confirmed by Duglas Navarrete ([id number]) on 11/10/2020 1:24:05 PM Referred By: REFERRED SELF Confirmed By:Marcelo Navarrete
--- NOTE | 2020-11-10 19:23 | Discharge Summary ---
Date of Service November 10, 2020 Admission HPI Per Admitting Provider The patient is a 75-year-old male with a past medical history including palpitations, fatigue, PSVT, near syncope, lumbar facet joint syndrome, dyslipidemia, osteoarthritis and BPH with LUTS. He is status post ablation in June 2000 for reported SVT while in [place]. He is status post prostatectomy at approximately October 17 of this year due to enlarged prostate, and had to have a Garcia placed a few days ago in the ED here due to significant urinary clots and urinary obstruction. He was scheduled to return to [place] via train this morning, to have a follow-up related to his prostate surgery, but due to symp toms as noted above, he presented to the ED for assessment today. Discharge Data Allergies Allergy/AdvReac Type Severity Reaction Status Date / Time No Known Allergies Allergy Verified 11/09/20 10:18 Consultations 11/09/20 12:14 ED Decision to Admit Stat 11/09/20 15:02 Consult Cardiology Routine Ordered Studies 11/09/20 12:45 CT angio chest PE protocol Stat Hospital Course (1) Elevated troponin I level: He has a very mild elevation in his cardiac biomarkers, just above the limit of normal. His symptoms today did not involve any chest pain. He is not known to have cardiac disease and in fact exercises regularly. He had a recent cardiac evaluation which involve stress echocardiography. This was reportedly normal. I Do not think this is an acute coronary syndrome. Possibly related to an extended period of high heart rates, although not confirmed. I do not believe he requires any additional evaluation in this regard. (2) Near syncope: It seems he has been having symptoms of dizziness, presyncope and confusion for some time. He may have had a neurological evaluation at some point. I cannot find a good correlation in his record between symptoms and arrhythmia. Remotely his symptoms may have been related to brief episodes of ventricular tachycardia and frequent ventricular ectopy. However, he claims to have had symptoms recently and did wear an event monitor as an outpatient. There is also no record available of the details regarding his recent ablation. At this point I think we need to confirm a correlation between his symptoms and any arrhythmia. If the correlation can be made then recommendations for treatment of his arrhythmia can be discussed. In the absence of any correlation, additional etiologies, possibly neurologic should be entertained for his symptoms. Discharge Plan Discharge Items Patient Disposition: Home - Self-Care Reason For Visit: ELEVATED TROPONIN Discharge Diagnosis: dizziness, confusion Condition on Discharge: Fair Activity: Resume your previous activity Bathing: No limitations Exercise/Sports: None Driving/Machine Use: No limitations Non-emergency contact: Winding Inspector Call non-emergency contact if: you have any medication questions and your symptoms worsen Follow-up/Referrals: Amina Helton MD [Primary Care Provider] - Diet: Regular Addtl Attending Provider Instructions: none Pending Studies at Discharge: No Stand-Alone Forms: My [facility] [email or web address] (formerly [place]), Smoking Cessation Medications and DC Order Prescriptions: Continued [id number]-algal oil [Metanx (algal oil)] 3 mg-35 mg-2 mg -90.314 mg capsule 1 cap PO BID Qty: 180 RF: 1 atorvastatin 10 mg tablet 10 mg PO QAM Qty: 90 RF: 1 arginine HCl (L-arginine) 1,000 mg tablet 1 tab PO BID RF: 0 aspirin 81 mg tablet,delayed release (DR/EC) 81 mg PO QAM RF: 0 saw palmetto 500 mg capsule 500 mg PO TID RF: 0 melatonin 10 mg Tablet 10 mg PO HS RF: 0 cholecalciferol (vitamin D3) 1,000 unit capsule 1,000 units PO BID RF: 0 ciprofloxacin HCl 500 mg tablet 500 mg PO Q12H Qty: 6 RF: 0 acetaminophen [Tylenol] 325 mg Tablet 325 mg PO QID PRN (Reason: Pain) RF: 0 zaleplon 5 mg capsule 5 - 10 mg PO HS PRN (Reason: sleep) RF: 0 Discharge Orders: Discharge Order (Routine); Ordered 11/10/20 Ordered By: Gallo Navarrete Admission Data Admit Date/Time: 11/09/20 12:49 Attending Provider: Anahi Francois Admit Provider: Todd Santos Primary Care Provider: Amina Helton V. Other Providers: Todd Santos ; Gallo Navarrete Other Interventions: Discharge Summary Assessment (RN) Last Done: 11/10/20 18:40 Coding Diagnoses Elevated troponin I level R77.8 Near syncope R55
== END 2020-11-10 19:03 | disposition home or self-care (01) ==
LOC: ED 08:51 → 2S 08:51 → SUATTDRO 12:49 → 2S 14:14

== ENCOUNTER 2021-03-31 20:23 | Observation (INO) ==
[2021-03-31] MEDS ORDERED: SODIUM CHLORIDE 0.9% 500 ML IV STA (20:34)
--- NOTE | 2021-03-31 20:40 | Emergency Department Note ---
History of Present Illness General Chief complaint: Cardiac Assessment Stated complaint: CHEST PAIN/DIAPHORETIC - NOW RESOLVED Time Seen by Provider: 03/31/21 20:27 Source: patient Mode of arrival: ambulatory Limitations: no limitations History of Present Illness This patient is a 75-year-old male who is brought in by EMS after having episode where he felt dizzy and diaphoretic. He also has some chest fullness. This happened about an hour ago. It lasted about 20 minutes he was sweaty had no particular pain in the neck arm or back. He had no focal numbness or weakness he may have had some chest pain earlier today but felt like it was from working out. He is recently started on sertraline. He he did have a drink called [employer] and he typically drinks wine but says it may have hit him harder because it is hard alcohol. He denies any headache. He was given aspirin 324 mg chewable in the ambulance the EKG obtained in the ambulance was unremarkable when I reviewed it there is no evidence of ischemia or significant arrhythmia. The patient feels better now. He does a history of cardiac ablation and says this feels different than when he had his arrhythmias. He has had the Covid vaccine and booster. No blood or melena stool. No urinary symptoms. No trauma or injury. Home Medications Medication Instructions Recorded Confirmed Type arginine HCl (L-arginine) 1,000 mg 1 tab PO BID tab 09/08/18 03/31/21 History tablet aspirin 81 mg tablet,delayed 81 mg PO QAM tab 09/08/18 03/31/21 History release cholecalciferol (vitamin D3) 25 1,000 units PO BID 09/22/18 03/31/21 History mcg (1,000 unit) capsule melatonin 10 mg tablet 10 mg PO HS 09/22/18 03/31/21 History acetaminophen 325 mg tablet 325 mg PO QID PRN 11/09/20 03/31/21 History (Tylenol) levomefolate Ca 3 mg-B6 35 1 cap PO BID #180 cap 11/30/20 03/31/21 Rx mg-meB12 2 mg-algal oil 90.314 mg capsule (Metanx (algal oil)) atorvastatin 10 mg tablet 10 mg PO QAM #90 tab 03/12/21 03/31/21 Rx sertraline 50 mg tablet 50 mg PO DAILY #30 tab 03/23/21 03/31/21 Rx calcium citrate 200 mg (950 mg) 200 mg PO DAILY 03/31/21 03/31/21 History tablet tadalafil 5 mg tablet 5.5 mg PO DAILY 03/31/21 03/31/21 History Allergies Allergy/AdvReac Type Severity Reaction Status Date / Time No Known Allergies Allergy Verified 03/31/21 21:43 Past Med/Surg History Medical History Acute exacerbation of chronic low back pain BPH (benign prostatic hyperplasia) BPH (benign prostatic hyperplasia) BPH (benign prostatic hyperplasia) Dyslipidemia Elevated troponin Elevated troponin Elevated troponin I level Encounter for pre-operative examination Hyperlipidemia Inguinal hernia Leg length discrepancy Lumbar facet joint syndrome Near syncope Near syncope Neuropathy FEET (BOTTOM)/TOE NEUROPATHY Osteoarthritis Osteoarthritis PAC (premature atrial contraction) PVC (premature ventricular contraction) NO ISSUES S/P ABLATION Shoulder pain, right Thrombocytopenia Surgical History History of cardiac radiofrequency ablation History of right knee joint replacement History of surgery Aneurysmectomy History of total left knee replacement History of transurethral resection of prostate History of urologic surgery UROLIFT Hx of appendectomy Hx of craniotomy ANEURYSM REPAIR D/T "INTACT ANUERYSM" (1998) Hx of melanoma excision BACK S/P hernia repair (10/13/18) Bilateral inguinal hernia with left side direct and indirect with lipoma, right side indirect with large lipoma 10/13/18 Dr. Mccurdy. Family History Father Hx of cardiac disorder Mother Heart disease Breast cancer Hypertension Kidney malignant neoplasm Unknown Breast cancer Family/Other Prostate cancer Family/Other Myocardial infarction Denies family history of Ovarian cancer Colorectal cancer Social History Smoking Status: Unknown if ever smoked Second Hand Exposure: No; Hx Alcohol Use: No Hx Substance Use: No Preferred Language: Albanian Communication Ability: Effective Visual Impairment: No Limitations Hearing Ability: Normal Black[place] Spreader Required: No Beliefs That Will Affect Care: None marital status: Current Living Situation: Spouse current occupational status: retired How many Children do You have: 1 Feels Safe at Home: Yes Childhood Exposure to Second-Hand Smoke: Yes Dental Care, Regularly: Yes Physical Activity Frequency: 3-4 Times per Week Seatbelt Use: always Sunscreen Use: Yes Assistive Devices: None Review of Systems A total of 10 systems reviewed and were otherwise negative Physical Exam Vital Signs Vital Signs - 24 hr 03/31/21 20:46 03/31/21 22:28 Pulse Rate 71 Respiratory Rate 20 Respiratory Effort / Characteristics Non-Labored Spontaneous Respiratory Depth Normal Blood Pressure 141/84 H Blood Pressure Mean 103 Pulse Oximetry 98 Oxygen Delivery Method Room Air Room Air Sepsis New/Unexplained Change in Mental Status N/A Sepsis Action Taken by Nursing No Action Required General: Well developed well nourished not ill-appearing middle-age male who appears in no acute distress, breathing comfortably on room air. Normal speech HEENT: Normal cephalic atraumatic. Pupils are equal round and reactive to light. Extraocular movements are intact. Oropharynx is pink with moist mucous membranes. No swelling of the mouth lips or tongue. Neck: Supple with a midline trachea. No meningeal signs or stiffness, no JVD or bruits. No Stridor. Chest: Clear to auscultation bilaterally. No wheezes or rhonchi. No increased work of breathing. Heart: Regular rate and rhythm without murmurs or gallops. Abdomen: Soft nontender, nondistended without rebound guarding or rigidity. Extremities: No cyanosis clubbing or edema. No calf tenderness or assymetry Spine/Back. Non tender to palpation. No CVA tenderness Skin: Good turgor without rashes. Neurologic exam: Cranial nerves two through 12 are intact. Motor and sensation are intact and symmetrical throughout. Course Administered Medications Discontinued Medications Sodium Chloride (Nss) 500 mls @ 999 mls/hr IV .Q31M STA Stop: 03/31/21 21:04 Last Infusion: 03/31/21 21:40 Dose: 0 mls/hr Documented by: [id number] Admin: 03/31/21 21:08 Dose: 999 mls/hr Documented by: [id number] Medical Decision Making Differential Diagnosis Acute coronary syndrome, arrhythmia, electrolyte or metabolic abnormality, central neurologic process, medication side effect, toxicologic/metabolic, infectious, PE, aortic pathology Medical Records Attestation: I reviewed the patient's medical records. Home Medications Current Medication List: was personally reviewed by me Laboratory Data Attestation: I reviewed the patient's lab results. Result diagrams: 03/31/21 20:40 03/31/21 20:40 Lab Results 03/31/21 03/31/21 03/31/21 Range/Units 20:40 20:40 20:40 WBC 4.13 L (4.8-10.8) K/uL RBC 4.48 L (4.7-6.1) M/uL Hgb 13.4 L (14.0-18.0) g/dL Hct 40.0 L (42-52) % MCV 89.3 (80-100) fL MCH 29.9 (25-34) pg MCHC 33.5 (32-36) g/dL RDW Std Deviation 44.0 (36.4-46.3) fL RDW Coeff of Red 13.3 (11.5-14.5) % Plt Count 184 (130-400) K/uL MPV 9.5 (7.4-10.4) fL Immature Gran % (Auto) 0.2 % Neut % (Auto) 62.3 % Lymph % (Auto) 19.6 % [place] % (Auto) 13.6 % Eos % (Auto) 4.1 % Baso % (Auto) 0.2 % Neut # (Auto) 2.57 (1.4-6.5) K/uL Lymph # (Auto) 0.81 L (1.2-3.4) K/uL [place] # (Auto) 0.56 (0.11-0.59) K/uL Eos # (Auto) 0.17 (0-0.5) K/uL Baso # (Auto) 0.01 (0-0.2) K/uL Immature Gran # (Auto) 0.01 (0.00-0.02) K/uL PT 11.2 (9.0-12.0) Seconds INR 1.1 (0.9-1.1) APTT 24.4 (21.0-31.0) Seconds PTT Ratio 0.9 D-Dimer 400 (0-500) ug/L FEU Sodium (136-145) mmol/L Potassium (3.5-5.1) mmol/L Chloride (98-107) mmol/L Carbon Dioxide (21-32) mmol/L Anion Gap (3-11) BUN (7-18) mg/dl Creatinine (0.6-1.4) mg/dl Est Cr Clr Drug Dosing Est GFR ( Amer) ml/min Est GFR (Non-Af Amer) ml/min BUN/Creatinine Ratio (10-20) Glucose (70-99) mg/dl Calcium (8.5-10.1) mg/dl Total Bilirubin (0.2-1) mg/dl AST (15-37) U/L ALT (12-78) Alkaline Phosphatase (45-117) U/L Troponin I (0-0.045) ng/ml Total Protein (6.4-8.2) gm/dl Albumin (3.4-5.0) gm/dl Globulin (2.5-4.0) gm/dl Albumin/Globulin Ratio (0.9-2) Lipase (73-393) U/L Ethyl Alcohol mg/dL < 3.0 (0-3) mg/dl SARS-CoV-2 (PCR) (Negative) Influenza Type A (PCR) (Neg) Influenza Type B (PCR) (Neg) RSV (RT-PCR) (Neg) 03/31/21 03/31/21 Range/Units 20:40 22:35 WBC (4.8-10.8) K/uL RBC (4.7-6.1) M/uL Hgb (14.0-18.0) g/dL Hct (42-52) % MCV (80-100) fL MCH (25-34) pg MCHC (32-36) g/dL RDW Std Deviation (36.4-46.3) fL RDW Coeff of Red (11.5-14.5) % Plt Count (130-400) K/uL MPV (7.4-10.4) fL Immature Gran % (Auto) % Neut % (Auto) % Lymph % (Auto) % [place] % (Auto) % Eos % (Auto) % Baso % (Auto) % Neut # (Auto) (1.4-6.5) K/uL Lymph # (Auto) (1.2-3.4) K/uL [place] # (Auto) (0.11-0.59) K/uL Eos # (Auto) (0-0.5) K/uL Baso # (Auto) (0-0.2) K/uL Immature Gran # (Auto) (0.00-0.02) K/uL PT (9.0-12.0) Seconds INR (0.9-1.1) APTT (21.0-31.0) Seconds PTT Ratio D-Dimer (0-500) ug/L FEU Sodium 140 (136-145) mmol/L Potassium 4.1 (3.5-5.1) mmol/L Chloride 109 H (98-107) mmol/L Carbon Dioxide 26 (21-32) mmol/L Anion Gap 6.0 (3-11) BUN 19 H (7-18) mg/dl Creatinine 1.17 (0.6-1.4) mg/dl Est Cr Clr Drug Dosing Not Reportable Est GFR ( Amer) 70.3 ml/min Est GFR (Non-Af Amer) 60.6 ml/min BUN/Creatinine Ratio 16.1 (10-20) Glucose 138 H (70-99) mg/dl Calcium 8.9 (8.5-10.1) mg/dl Total Bilirubin 0.4 (0.2-1) mg/dl AST 22 (15-37) U/L ALT 32 (12-78) Alkaline Phosphatase 56 (45-117) U/L Troponin I 0.047 H* (0-0.045) ng/ml Total Protein 7.1 (6.4-8.2) gm/dl Albumin 3.6 (3.4-5.0) gm/dl Globulin 3.5 (2.5-4.0) gm/dl Albumin/Globulin Ratio 1.0 (0.9-2) Lipase 235 (73-393) U/L Ethyl Alcohol mg/dL (0-3) mg/dl SARS-CoV-2 (PCR) NEGATIVE (Negative) Influenza Type A (PCR) Negative (Neg) Influenza Type B (PCR) Negative (Neg) RSV (RT-PCR) Negative (Neg) Imaging Data Attestation: I personally reviewed and interpreted this imaging study as follows: My Impression: Chest x-rayno acute infiltrate, failure, pneumothorax seen upon my interpretation Radiologist's Impression: Chest X-Ray 03/31/21 20:35 SINGLE VIEW CHEST CLINICAL HISTORY: Atypical chest pain. FINDINGS: An AP, portable, upright chest radiograph is compared to chest x-ray and chest CT dated 11/09/2020. The heart is top normal for projection noting atherosclerotic calcification of the thoracic aorta. There is mild elevation of the right hemidiaphragm and bibasilar atelectasis. No airspace consolidation or large pleural effusion is identified. No pneumothorax is seen. The skeletal structures are osteopenic. The bony thorax is grossly intact. IMPRESSION: No acute cardiopulmonary abnormality. ACT 112: Negative or not required by law. Electronically signed by: Nabeel Gonzalez M.D. 03/31/2021 9:15 PM ECG Data Attestation: I personally reviewed and interpreted this ECG as follows: Indication: + chest pain and + diaphoresis Rate (beats per minute): 80 Rhythm: + normal sinus ECG Intervals/blocks: + Incomplete right bundle branch block, + Normal QT and + Normal FL ECG [place]: + Normal ECG ST segments: + Normal ST segments ECG Findings: no PACs or no PVCs Comparison ECG Date: from (12/11/20) [facility] Narrative This patient comes in as described above he has had some dizziness chest heaviness and diaphoresis. He does have a history of arrhythmia has been ab lated. He received aspirin he has stable vital signs and looks better now. IV access established and he was hydrated with IV normal saline bolus he has had no neurologic symptoms. He has been vaccinated and had a booster for Covid and I think that is unlikely. Covid testing flu testing was negative. EKG shows no change compared to old his troponin is mildly elevated. He has been asymptomatic while he is here he is no neurologic deficits the rest of his blood work is unremarkable. He does have a history of arrhythmias. I do think he needs to be admitted/observe for further cardiac treatment and evaluation and monitoring. I have consulted the hospitalist to see him in ER for these measures. Continuous cardiac monitoring: Orders placed in EMR for continuous campus monitor. Home interpretation patient was noted to be normal sinus rhythm with a rate of 70 Impression & Plan Near syncope, Elevated troponin, Diaphoresis, H/O supraventricular tachycardia Discharge Plan Visit Data Chief Complaint: Cardiac Assessment Stated Complaint: CHEST PAIN/DIAPHORETIC - NOW RESOLVED ED Provider: Jason Zepeda Discharge Problem: Near syncope, Elevated troponin, Diaphoresis, H/O supraventricular tachycardia Forms Stand Alone Forms: My [facility] [place] [employer] Prescriptions Prescriptions: No Action [id number] oil [Metanx (algal oil)] 3 mg-35 mg-2 mg -90.314 mg capsule 1 cap PO BID Qty: 180 RF: 1 atorvastatin 10 mg tablet 10 mg PO QAM Qty: 90 RF: 1 sertraline 50 mg tablet 50 mg PO DAILY Qty: 30 RF: 1 arginine HCl (L-arginine) 1,000 mg tablet 1 tab PO BID RF: 0 aspirin 81 mg tablet,delayed release (DR/EC) 81 mg PO QAM RF: 0 melatonin 10 mg Tablet 10 mg PO HS RF: 0 cholecalciferol (vitamin D3) 1,000 unit capsule 1,000 units PO BID RF: 0 acetaminophen [Tylenol] 325 mg Tablet 325 mg PO QID PRN (Reason: Pain) RF: 0 calcium citrate 200 mg (950 mg) Tablet 200 mg PO DAILY RF: 0 tadalafil 5 mg Tablet 5.5 mg PO DAILY RF: 0 Referrals Referrals: Amina Helton MD [Primary Care Provider] -
[2021-03-31 21:00] LABS: Basophils # (auto) 0.01 K/uL (0-0.2); Basophils % (auto) 0.2 %; Eosinophils # (auto) 0.17 K/uL (0-0.5); Eosinophils % (auto) 4.1 %; Hemoglobin 13.4 g/dL (14.0-18.0); Immature Granulocytes # (auto) 0.01 K/uL (0.00-0.02); Immature Granulocytes % (auto) 0.2 %; Lymphocytes # (auto) 0.81 K/uL (1.2-3.4); Lymphocytes % (auto) 19.6 %; Mean Corpuscular Hemoglobin 29.9 pg (25-34); Mean Corpuscular Hgb Conc 33.5 g/dL (32-36); Mean Corpuscular Volume 89.3 fL (80-100); Mean Platelet Volume 9.5 fL (7.4-10.4); Monocytes # (auto) 0.56 K/uL (0.11-0.59); Monocytes % (auto) 13.6 %; Neutrophils # (auto) 2.57 K/uL (1.4-6.5); Neutrophils % (auto) 62.3 %; Platelet Count 184 K/uL (130-400); RDW Coefficient of Variation 13.3 % (11.5-14.5); Red Blood Count 4.48 M/uL (4.7-6.1); White Blood Count 4.13 K/uL (4.8-10.8)
[2021-03-31 21:16] LABS: D Dimer 400 ug/L FEU (0-500); INR 1.1 (0.9-1.1); Partial Thromboplastin Ratio 0.9; Partial Thromboplastin Time 24.4 Seconds (21.0-31.0); Prothrombin Time 11.2 Seconds (9.0-12.0)
--- NOTE | 2021-03-31 21:17 | XRay Report ---
SINGLE VIEW CHEST CLINICAL HISTORY: Atypical chest pain. FINDINGS: An AP, portable, upright chest radiograph is compared to chest x-ray and chest CT dated 10/30. The heart is top normal for projection noting atherosclerotic calcification of the thoracic a randy. There is mild elevation of the right hemidiaphragm and bibasilar atelectasis. No airspace conso lidation or large pleural effusion is identified. No pneumothorax is seen. The skeletal structures ar e osteopenic. The bony thorax is grossly intact. IMPRESSION: No acute cardiopulmonary abnormality. ACT 112: Negative or not required by law. Electronically signed by: Nabeel Gonzalez M.D. 03/31/2021 9:15 PM
[2021-03-31 21:18] LABS: Alanine Aminotransferase 32 (12-78); Albumin Level 3.6 gm/dl (3.4-5.0); Aspartate Aminotransferase 22 U/L (15-37); BUN Creatinine Ratio 16.1 (10-20); Blood Urea Nitrogen 19 mg/dl (7-18); Calcium 8.9 mg/dl (8.5-10.1); Carbon Dioxide 26 mmol/L (21-32); Chloride 109 mmol/L (98-107); Est GFR (African American) 70.3 ml/min; Est GFR (Non-African American) 60.6 ml/min; Glucose 138 mg/dl (70-99); Lipase 235 U/L (73-393); Potassium 4.1 mmol/L (3.5-5.1); Sodium 140 mmol/L (136-145)
[2021-03-31 21:40] LABS: Alkaline Phosphatase 56 U/L (45-117); Globulin 3.5 gm/dl (2.5-4.0); Total Protein 7.1 gm/dl (6.4-8.2); Troponin I 0.047 ng/ml (0-0.045)
[2021-03-31 22:05] LABS: Bilirubin,Total 0.4 mg/dl (0.2-1)
[2021-03-31 23:28] LABS: Influenza A virus by PCR Negative (Neg); Influenza B virus by PCR Negative (Neg); RSV by PCR Negative (Neg); SARS CoV2 RNA(COVID-19) InHosp NEGATIVE (Negative)
--- NOTE | 2021-03-31 23:45 | History & Physical Report ---
Date of Service March 31, 2021 Assessment & Plan (1) Diaphoresis: Plan: Patient is a pleasant 75 year old male with PMHx Anxiety, HLD, BPH, PSVT s/p Ablation x2, Brain Aneurysm s/p ablation 1998 who presents with history of chest fullness, dizziness, and diaphoresis around 7:30PM earlier this evening while at home. Elevated Troponin in the setting of Diaphoresis and Near syncope -EKG on admission without obvious ST-Twave changes concerning for LA -Rate appropriate at 69 bpm -Patient at this time without chest pain, and clarification that his chest pain he described initially had been present for the past 2-3 days -Troponin elevated at 0.047, it does appear patient has had elevations as high as 0.057 in the past -Will trend an 8 hour troponin -Continue monitor on Telemetry -Continue ASA -Continue Atorvastatin -Check BMP and Mg in AM -Repeat EKG in AM or with chest pain BPH -Continue Tadalafil Anxiety -Continue Sertraline -This was started in the past 1 week, would monitor as patients symptoms may also be a side effect with new SSRI use Dispo: Med/Surg Telemetry for cardiac monitoring FEN: Regular diet DVT: SCDs Code: DNR/DNI (2) Elevated troponin: (3) Near syncope: History of Present Illness Chief Complaint: Diaphoresis, Dizziness Primary Care Provider: Amina Helton MD Patient is a pleasant 75 year old male with PMHx Anxiety, HLD, BPH, PSVT s/p Ablation x2, Brain Aneurysm s/p ablation 1998 who presents with history of chest fullness, dizziness, and diaphoresis around 7:30PM earlier this evening while at home. Patient notes that he was sitting at home when he suddenly felt warm, sweaty, and dizzy. He states that he also had some chest fullness at that time, but states this has been ongoing for the past 2-3 days after doing pull-down exercises at the gym. He notes that the symptoms lasted about 5 minutes before resolving and that he currently feels well and at his baseline. He does note a history of PSVT that required ablation x2 and that this did not feel similar at all to his previous episodes. He denied any SOB, chest pressure, back pain, L arm pain, numbness or tingling during the event. Currently he denies any chest pain, chest pressure, SOB, fever, chills, abdominal pain, NVD. He notes he did have a single alcoholic beverage tonight which contained 2 oz of Gin which is different than his usual glass of red wine. He notes that around August/September of this year he did have a fairly significant resection of his prostate secondary to LUTS from his BPH and that he has concerns that what he experienced today was hot flashes secondary to his prostate surgery. Of note, patients troponin was elevated in the ED, however, patient notes that "my troponin is always manisha vated." Med Hx: Anxiety, HLD, BPH, PSVT s/p Ablation x2, Brain Aneurysm s/p ablation 1998 Surg Hx: S/P cardiac ablation for PSVT x2, Appendectomy, Brain aneurysm ablation, transurethral resection of prostate Soc Hx: 15 year 1PPD history of tobacco use - quit 1983, Drinks 2 glasses of wine/week, denies illicit drug use Allergies Allergy/AdvReac Type Severity Reaction Status Date / Time No Known Allergies Allergy Verified 03/31/21 21:43 Home Medications Medication Instructions Recorded Confirmed Type arginine HCl (L-arginine) 1,000 mg 1 tab PO BID tab 09/08/18 03/31/21 History tablet aspirin 81 mg tablet,delayed 81 mg PO QAM tab 09/08/18 03/31/21 History release cholecalciferol (vitamin D3) 25 1,000 units PO BID 09/22/18 03/31/21 History mcg (1,000 unit) capsule melatonin 10 mg tablet 10 mg PO HS 09/22/18 03/31/21 History acetaminophen 325 mg tablet 325 mg PO QID PRN 11/09/20 03/31/21 History (Tylenol) levomefolate Ca 3 mg-B6 35 1 cap PO BID #180 cap 11/30/20 03/31/21 Rx mg-meB12 2 mg-algal oil 90.314 mg capsule (Metanx (algal oil)) atorvastatin 10 mg tablet 10 mg PO QAM #90 tab 03/12/21 03/31/21 Rx sertraline 50 mg tablet 50 mg PO DAILY #30 tab 03/23/21 03/31/21 Rx calcium citrate 200 mg (950 mg) 200 mg PO DAILY 03/31/21 03/31/21 History tablet tadalafil 5 mg tablet 5.5 mg PO DAILY 03/31/21 03/31/21 History Past Med/Surg History Medical History Acute exacerbation of chronic low back pain BPH (benign prostatic hyperplasia) BPH (benign prostatic hyperplasia) BPH (benign prostatic hyperplasia) Dyslipidemia Elevated troponin Elevated troponin Elevated troponin I level Encounter for pre-operative examination Hyperlipidemia Inguinal hernia Leg length discrepancy Lumbar facet joint syndrome Near syncope Near syncope Neuropathy FEET (BOTTOM)/TOE NEUROPATHY Osteoarthritis Osteoarthritis PAC (premature atrial contraction) PVC (premature ventricular contraction) NO ISSUES S/P ABLATION Shoulder pain, right Thrombocytopenia Surgical History History of cardiac radiofrequency ablation History of right knee joint replacement History of surgery Aneurysmectomy History of total left knee replacement History of transurethral resection of prostate History of urologic surgery UROLIFT Hx of appendectomy Hx of craniotomy ANEURYSM REPAIR D/T "INTACT ANUERYSM" (1998) Hx of melanoma excision BACK S/P hernia repair (10/13/18) Bilateral inguinal hernia with left side direct and indirect with lipoma, right side indirect with large lipoma 10/13/18 Dr. Mccurdy. 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 Beliefs That Will Affect Care: None marital status: Current Living Situation: Spouse Current Living Situation Comment: Home with spouse current occupational status: retired How many Children do You have: 1 Other Information That Helps Us Care for You: No Feels Safe at Home: Yes Safety Concerns: Feels Safe At This Time Childhood Exposure to Second-Hand Smoke: Yes Dental Care, Regularly: Yes Physical Activity Frequency: 3-4 Times per Week Seatbelt Use: always Sunscreen Use: Yes Assistive Devices: None Review of Systems Review of Systems: All systems reviewed & are unremarkable except as noted in Subjective Physical Exam Constitutional: WD/WN, vitals as above Eyes: PERRL, conjunctivae normal, anicteric sclerae ENMT: external ear and nose normal, oropharynx normal Neck: trachea midline, no thyromegaly Respiratory: normal respiratory effort, lungs clear to auscultation Cardiovascular: RRR, no murmur, no edema Gastrointestinal (Abdomen): normal bowel sounds, soft, nontender, no hepatosplenomegaly Musculoskeletal: no cyanosis or clubbing, extremities motor strength 5/5 No tenderness to palpation of chest wall. Some tenderness with palpation of the side of the chest/back, more towards the latissimus dorsi Skin: no rashes, warm and dry Neurologic: PERRL, EOMI, accommodation nl, no face palsy, no dysarthria Psychiatric: A+Ox3, euthymic affect Results & Data Results & Data ([facility]) Vital Signs (Past 12 Hours) Vital Signs Pulse Resp BP Pulse Ox 03/31/21 20:46 71 20 141/84 H 98 Laboratory Results Laboratory Results - last 24 hr 03/31/21 03/31/21 03/31/21 20:40 20:40 20:40 WBC 4.13 L RBC 4.48 L Hgb 13.4 L Hct 40.0 L MCV 89.3 MCH 29.9 MCHC 33.5 RDW Std Deviation 44.0 RDW Coeff of Red 13.3 Plt Count 184 MPV 9.5 Immature Gran % (Auto) 0.2 Neut % (Auto) 62.3 Lymph % (Auto) 19.6 [place] % (Auto) 13.6 Eos % (Auto) 4.1 Baso % (Auto) 0.2 Neut # (Auto) 2.57 Lymph # (Auto) 0.81 L [place] # (Auto) 0.56 Eos # (Auto) 0.17 Baso # (Auto) 0.01 Immature Gran # (Auto) 0.01 PT 11.2 INR 1.1 APTT 24.4 PTT Ratio 0.9 D-Dimer 400 Sodium Potassium Chloride Carbon Dioxide Anion Gap BUN Creatinine Est Cr Clr Drug Dosing Est GFR ( Amer) Est GFR (Non-Af Amer) BUN/Creatinine Ratio Glucose Calcium Total Bilirubin AST ALT Alkaline Phosphatase Troponin I Total Protein Albumin Globulin Albumin/Globulin Ratio Lipase Ethyl Alcohol mg/dL < 3.0 SARS-CoV-2 (PCR) Influenza Type A (PCR) Influenza Type B (PCR) RSV (RT-PCR) 03/31/21 03/31/21 20:40 22:35 WBC RBC Hgb Hct MCV MCH MCHC RDW Std Deviation RDW Coeff of Red Plt Count MPV Immature Gran % (Auto) Neut % (Auto) Lymph % (Auto) [place] % (Auto) Eos % (Auto) Baso % (Auto) Neut # (Auto) Lymph # (Auto) [place] # (Auto) Eos # (Auto) Baso # (Auto) Immature Gran # (Auto) PT INR APTT PTT Ratio D-Dimer Sodium 140 Potassium 4.1 Chloride 109 H Carbon Dioxide 26 Anion Gap 6.0 BUN 19 H Creatinine 1.17 Est Cr Clr Drug Dosing Not Reportable Est GFR ( Amer) 70.3 Est GFR (Non-Af Amer) 60.6 BUN/Creatinine Ratio 16.1 Glucose 138 H Calcium 8.9 Total Bilirubin 0.4 AST 22 ALT 32 Alkaline Phosphatase 56 Troponin I 0.047 H* Total Protein 7.1 Albumin 3.6 Globulin 3.5 Albumin/Globulin Ratio 1.0 Lipase 235 Ethyl Alcohol mg/dL SARS-CoV-2 (PCR) NEGATIVE Influenza Type A (PCR) Negative Influenza Type B (PCR) Negative RSV (RT-PCR) Negative Supervising Physician Co-Signing Physician Notes Attending addendum: I have physically seen this patient, have supervised the medical residents activities, and agree with the H&P unless as otherwise noted. Assessment and Plan: Elevated troponin/near syncope/PSVT history- the patient will be admitted to telemetry for serial cardiac enzymes, serial EKG's, cardiac rhythm monitoring and a 2-D echocardiogram with Dopplers. Troponin 0.047 upon admission continue aspirin Remaining orders and notations as noted Resident Activity Tracking Resident Involvement: Resident Care Provided Care Provided: Adult Hospital Medicine
[2021-04-01] MEDS ORDERED: ACETAMINOPHEN 325 MG TAB PO PRN (00:52)
[2021-04-01] MEDS ORDERED: ONDANSETRON INJ 2 MG/ML 2 ML VIAL IV PRN (00:52)
[2021-04-01] MEDS ORDERED: MELATONIN 3 MG TAB PO PRN (01:11)
[2021-04-01 06:25] LABS: Basophils # (auto) 0.01 K/uL (0-0.2); Basophils % (auto) 0.3 %; Eosinophils # (auto) 0.11 K/uL (0-0.5); Eosinophils % (auto) 2.9 %; Hematocrit (blood only) 39.6 % (42-52); Hemoglobin 13.2 g/dL (14.0-18.0); Lymphocytes # (auto) 0.77 K/uL (1.2-3.4); Lymphocytes % (auto) 20.1 %; Mean Corpuscular Hemoglobin 29.7 pg (25-34); Mean Corpuscular Hgb Conc 33.3 g/dL (32-36); Mean Corpuscular Volume 89.2 fL (80-100); Mean Platelet Volume 9.6 fL (7.4-10.4); Monocytes # (auto) 0.46 K/uL (0.11-0.59); Neutrophils # (auto) 2.49 K/uL (1.4-6.5); Neutrophils % (auto) 64.7 %; Platelet Count 184 K/uL (130-400); RDW Coefficient of Variation 13.2 % (11.5-14.5); RDW Standard Deviation 43.7 fL (36.4-46.3); Red Blood Count 4.44 M/uL (4.7-6.1); White Blood Count 3.84 K/uL (4.8-10.8)
--- NOTE | 2021-04-01 06:47 | Hospitalist Progress Note ---
Date of Service April 01, 2021 Assessment & Plan Admission and Anticipated Discharge Date Admission Date: March 31, 2021 Results & Data Results & Data ([facility]) Vital Signs (Past 12 Hours) Vital Signs Pulse Pulse Resp BP BP Pulse Ox 04/01/21 04:00 64 18 157/98 H 97 04/01/21 00:30 67 16 118/66 96 04/01/21 00:00 67 13 145/91 H 95 03/31/21 23:55 69 15 159/99 H 97 03/31/21 22:00 68 23 143/94 H 98 03/31/21 20:46 71 20 141/84 H 98
[2021-04-01 06:51] LABS: BUN Creatinine Ratio 13.9 (10-20); Creatinine Clr Calc Pharmacy 68.1 ml/min; Est GFR (African American) 74.1 ml/min; Est GFR (Non-African American) 63.9 ml/min; Magnesium 2.2 mg/dl (1.8-2.4); Potassium 4.2 mmol/L (3.5-5.1)
[2021-04-01] MEDS ORDERED: TADALAFIL~ORDER AWAITING ACTION SCH (08:00)
[2021-04-01] MEDS ORDERED: ATORVASTATIN 10 MG TAB PO SCH (09:00)
[2021-04-01] MEDS ORDERED: SERTRALINE HCL 50 MG TABLET PO SCH (09:00)
[2021-04-01] MEDS ORDERED: ASPIRIN 81 MG ECTAB PO SCH (09:00)
--- NOTE | 2021-04-01 11:25 | Discharge Summary ---
Date of Service April 01, 2021 Admission HPI Per Admitting Provider Patient is a pleasant 75 year old male with PMHx Anxiety, HLD, BPH, PSVT s/p Ablation x2, Brain Aneurysm s/p ablation 1998 who presents with history of chest fullness, dizziness, and diaphoresis around 7:30PM earlier this evening while at home. Patient notes that he was sitting at home when he suddenly felt warm, sweaty, and dizzy. He states that he also had some chest fullness at that time, but states this has been ongoing for the past 2-3 days after doing pull-down exercises at the gym. He notes that the symptoms lasted about 5 minutes before resolving and that he currently feels well and at his baseline. He does note a history of PSVT that required ablation x2 and that this did not feel similar at all to his previous episodes. He denied any SOB, chest pressure, back pain, L arm pain, numbness or tingling during the event. Currently he denies any chest pain, chest pressure, SOB, fever, chills, abdominal pain, NVD. He notes he did have a single alcoholic beverage tonight which contained 2 oz of Gin which is different than his usual glass of red wine. He notes that around August/September of this year he did have a fairly significant resection of his prostate secondary to LUTS from his BPH and that he has concerns that what he experienced today was hot flashes secondary to his prostate surgery. Of note, patients troponin was elevated in the ED, however, patient notes that "my troponin is always elevated." Med Hx: Anxiety, HLD, BPH, PSVT s/p Ablation x2, Brain Aneurysm s/p ablation 1998 Surg Hx: S/P cardiac ablation for PSVT x2, Appendectomy, Brain aneurysm ablation, transurethral resection of prostate Soc Hx: 15 year 1PPD history of tobacco use - quit 1983, Drinks 2 glasses of wine/week, denies illicit drug use Admission Exam Per Admitting Provider Constitutional: WD/WN, vitals as above Eyes: PERRL, conjunctivae normal, anicteric sclerae ENMT: external ear and nose normal, oropharynx normal Neck: trachea midline, no thyromegaly Respiratory: normal respiratory effort, lungs clear to auscultation Cardiovascular: RRR, no murmur, no edema Gastrointestinal (Abdomen): normal bowel sounds, soft, nontender, no hepatosplenomegaly Musculoskeletal: no cyanosis or clubbing, extremities motor strength 5/5 No tenderness to palpation of chest wall. Some tenderness with palpation of the side of the chest/back, more towards the latissimus dorsi Skin: no rashes, warm and dry Neurologic: PERRL, EOMI, accommodation nl, no face palsy, no dysarthria Psychiatric: A+Ox3, euthymic affect Principal Diagnosis Presyncope Discharge Exam Constitutional: well-appearing, no acute distress CV: regular rhythm, no murmur appreciated, extremities well-perfused, no LE edema Resp: CTABL, no wheezes/rales/rhonchi appreciated, no increased work of breathing Skin: warm, dry, no rash appreciated Neuro: alert, oriented, no focal neurologic deficit appreciated Discharge Data Allergies Allergy/AdvReac Type Severity Reaction Status Date / Time No Known Allergies Allergy Verified 03/31/21 21:43 Consultations 03/31/21 21:49 ED Decision to Admit Stat Hospital Course (1) Diaphoresis: Patient's symptoms resolved prior to arrival. In the ED, EKG was without overt ischemic change. Troponin was mildly elevated, but this appears to be a chronic elevation; repeat troponin was within normal limits. Patient's symptoms were felt not to be of cardiac origin, and were felt to be likely secondary to vasovacal presyncope. Patient's home medication regimen was continued. Patient was discharged on hospital day one in stable condition. PCP follow-up was recommended. Total Time Total Time Spent Total Time Spent (In Minutes): see attending documentation Discharge Plan Discharge Items Patient Disposition: Home - Self-Care Reason For Visit: DIZZINESS, DIAPHORESIS, CHEST DISCOMFORT Discharge Diagnosis: Presyncope Activity: Resume your previous activity Non-emergency contact: Primary Care Provider Call non-emergency contact if: your symptoms worsen Follow-up/Referrals: Amina Helton MD [Primary Care Provider] - Diet: Regular Addtl Attending Provider Instructions: You were admitted to the hospital for dizziness and chest discomfort, suspected to be due to vasovagal presyncope. Our evaluation included labwork and imaging, all of which was reassuring. We feel your symptoms were not cardiac in origin, and we feel it is safe for you to return home. A discharge summary will be sent to your primary care physician to ensure continuity of care. Please bring this discharge summary with you to your next office appointment so that your provider can review it at that time. Follow-up appointments: Make a follow-up appointment with your PCP within the next week. It is very important that you follow up with them shortly after discharge from the hospital. Keep all your follow-up appointments as already scheduled. If you cannot make an appointment, notify your provider. CONTACT YOUR PRIMARY CARE PROVIDER if you experience any of the following: Mild chest pain or discomfort Mild difficulty breathing Difficulty following your treatment plan, or difficulty taking medications CALL 911 OR GO TO THE EMERGENCY DEPARTMENT if you experience any of the following: Sudden, severe abdominal pain or nausea/vomiting Severe chest pain, or chest pain that radiates (moves) to your jaw or arm Sudden, severe shortness of breath or difficulty breathing Thank you for allowing us to participate in your care. Pending Studies at Discharge: No Stand-Alone Forms: My [facility] Medications and DC Order Prescriptions: Continued [id number]-algal oil [Metanx (algal oil)] 3 mg-35 mg-2 mg -90.314 mg capsule 1 cap PO BID Qty: 180 RF: 1 atorvastatin 10 mg tablet 10 mg PO QAM Qty: 90 RF: 1 sertraline 50 mg tablet 50 mg PO DAILY Qty: 30 RF: 1 arginine HCl (L-arginine) 1,000 mg tablet 1 tab PO BID RF: 0 aspirin 81 mg tablet,delayed release (DR/EC) 81 mg PO QAM RF: 0 melatonin 10 mg Tablet 10 mg PO HS RF: 0 cholecalciferol (vitamin D3) 1,000 unit capsule 1,000 units PO BID RF: 0 acetaminophen [Tylenol] 325 mg Tablet 325 mg PO QID PRN (Reason: Pain) RF: 0 calcium citrate 200 mg (950 mg) Tablet 200 mg PO DAILY RF: 0 tadalafil 5 mg Tablet 5.5 mg PO DAILY RF: 0 Discharge Orders: Discharge Order (Routine); Ordered 04/01/21 Ordered By: Jerry Collins Admission Data Admit Date/Time: 03/31/21 22:58 Attending Provider: Gallo Spencer Admit Provider: Kev Ramos Primary Care Provider: Amina Helton V. Other Providers: Todd Santos Other Interventions: Discharge Summary Assessment (RN) Last Done: 04/01/21 12:25 Supervising Physician Co-Signing Physician Notes Attending attestation Pt seen and examined in concert with Dr. Collins. In agreement with the documented findings as noted in the resident documentation with any exceptions or additions as noted here. Reports complete return to baseline without recurrent symptoms. No apparent trigger upon review of symptoms though onset did occur while reading a somewhat anxiety provoking book while at rest. On examination, S1/S2 nl RRR no MCG. CTAB. Abd NT/ND BS+ve. CN II - XII grossly intact as tested. TTP at the area of the lateral pec/serratus c/w exercise reported. Diaphoresis with lightheadedness while sitting - troponin stable/downtrended (at baseline), EKG as noted without significant change. Recent echocardiogram without abnormality, previous carotid duplex without significant pathology. Concern for vasovagal vs. anxiety in the setting of alcohol use (small amt) would warrant follow up with PCP for further evaluation and strong precautions re: recurrent sx and ED follow up. Chest pressure - likely MSK consistent with reproducibility and recent triggering exercise Else see resident documentation as noted. Total attending time spent on this case on the day of discharge: 35 minutes. Resident Activity Tracking Resident Involvement: Resident Care Provided Care Provided: Adult Hospital Medicine
--- NOTE | 2021-04-01 21:01 | Electrocardiogram Report ---
Test Reason : Blood Pressure : / mmHG Vent. Rate : 068 BPM Atrial Rate : 068 BPM P-R Int : 140 ms QRS Dur : 104 ms QT Int : 422 ms P-R-T Axes : 058 001 064 degrees QTc Int : 448 ms Normal sinus rhythm Incomplete right bundle branch block Borderline ECG When compared with ECG of 10-NOV-2020 05:46, No significant change was found Confirmed by Obi Dalal ([id number]) on 04/01/2021 9:01:23 PM Referred By: REFERRED SELF Confirmed By:Obi Dlaal
--- NOTE | 2021-04-01 21:28 | Electrocardiogram Report ---
Test Reason : Blood Pressure : / mmHG Vent. Rate : 069 BPM Atrial Rate : 069 BPM P-R Int : 136 ms QRS Dur : 096 ms QT Int : 420 ms P-R-T Axes : 046 004 067 degrees QTc Int : 450 ms Normal sinus rhythm Normal ECG When compared with ECG of 31-MAR-2021 20:35, (unconfirmed) No significant change was found Confirmed by Obi Dalal ([id number]) on 04/01/2021 9:28:37 PM Referred By: REFERRED SELF Confirmed By:Obi Dalal
--- NOTE | 2021-04-01 22:27 | Billing Data ---
Date of Service April 01, 2021 Coding Level of Care Code INT OBSERVATION CARE 70M LVL 3
== END 2021-04-01 12:41 | disposition home or self-care (01) ==
LOC: EDINP 20:23 → ED 20:23 → SUATTDRO 22:58 → EDINP 04-01 00:51 → 2N 04-01 00:51